=== PATIENT | male | born 1990 | race Caucasian/White ===

== ENCOUNTER 2018-10-25 11:32 | Outpatient (REF) | payer SELFPAY ==
--- NOTE | 2018-10-25 08:20 | ORMUBX_PTH ---
PATIENT: Domenic Garcia LOC: [facility] U#:[id number] AGE/SX: 28/M ROOM: RE10/25/[address]: Ubaldo López : 1990 BED: DIS: 10/25/2018 SPEC #: [id number] RECD: 10/25/18 12:46 STATUS: SIVA REQ #: [id number] CONNOR: 10/25/18 08:[address]: Ubaldo López DEPT: Surgical Specimen RECD BY: Jessica Sagastume ENTERED: 10/25/18 12:47 SP TYPE: ORMUBX OTHR DR: Guero Conner MD Tissues: 1 - MUCOSA, NOS Procedures: GROSS AND MICRO LEVEL 4 Comments: [id number]
== END 2018-10-25 11:52 ==
LOC: LBN 11:32
PROVIDERS: PCP Family Medicine; Visit Provider Dentist General Practice
DX: K13.79 Other lesions of oral mucosa (principal); K13.29 Other disturbances of oral epithelium, including tongue; F17.221 Nicotine dependence, chewing tobacco, in remission
CPT/HCPCS: 88305

== ENCOUNTER 2020-11-12 09:14 | Emergency (ER) | payer OTHER, SELFPAY ==
[2020-11-12] VITALS (43 sets, daily range): BP systolic 113–167; BP diastolic 59–110; PULSE 52–76; RESP 0–27; TEMP 36.7; O2SAT 96–100
--- NOTE | 2020-11-12 09:15 | RT.EKG_ITS ---
APPROVED REPORT Exam: Resting ECG Reason for Exam: chest pain Patient Location: E HR:80 bpm ECG Measurements Heart Rate 80 AXIS MA 137 P 50 QRSd 92 QRS 57 QT 382 T 45 QTc 439 Conclusion Sinus rhythm...normal P axis, V-rate 60- 99 ST elev, probable normal early repol pattern...ST elevation, age<55
--- NOTE | 2020-11-12 10:02 | ED.GENADUL_ITS ---
Discharge Plan Disposition Patient Disposition: HOME Condition: Good Discharge Details Clinical Impression: Chest pain Primary Care Provider: [facility] ED Provider: Jessica King Home Meds and New Rx's Prescriptions: No Action No Known Home Meds RF: 0 Discharge Instructions Additional Instructions: Please follow-up with primary care physician this week, care management should call you to establish primary care physician I have ordered your stress test, they will call you to confirm time You may take aspirin or Tylenol as needed for pain and evening Should you start developing shortness of breath or chest pain during the day and with exertion, you should return immediately for reevaluation Please work on tapering off alcohol, 1 drink a day, so decreased from [id number], do not stop drinking abruptly as this is very dangerous to do yet call the [place] today to be reevaluated and establish care Discharge Data Discharge Date/Time-TO BE ENTERED AT DEPARTURE: 11/12/20 13:55 Medical Decision Making Patient appears well, he is completely asymptomatic and has 2 - troponin levels and a negative D-dimer I did consider cardiac etiology of patient's pain and he is at risk given significant early family history of coronary artery disease at the age of 49 Patient smokes tobacco and drinks alcohol, tobacco and alcohol cessation were discussed Tapering down on alcohol by 1 drink a day was recommended No abdominal bruit or pulsatile mass, I did consider thoracic and abdominal aortic dissection, however as patient is pain-free without any tearing sensation or significant radiation to the back, my suspicion that this is a dissection is low clinically Chest x-ray does not show widened mediastinum or any evidence of intrathoracic abnormality Patient will be set up for outpatient stress test [facility] care management was encouraged to recheck to patient to be sure he establishes care He is given low threshold to return with new or worsening complaints side effects were is a 3 which is why performed to troponin level within 3 hours of each other He did not perform CAT scan of clinically my suspicion is much lower for PE given negative D-dimer, lack of hypoxia, tachypnea, or tachycardia without history of coagulopathy Patient will need recheck and 24 to 48 hours Medical Records Medical records reviewed: Yes I reviewed the patient's medical records. Lab Data Lab results reviewed: Yes I reviewed the patient's lab results. ECG Data Prior ECG tracings: available for review HPI General Mode of arrival: ambulatory . Date/Time Provider Initiated Documentation: 11/12/20 09:38 . Limitations to Documentation: no limitations . Information obtained by: patient . HPI Narrative: This 30-year-old male presents with chest pain for the past 2 weeks that is worsening. He states the pain is in his anterior chest and radiates into his back. He is having pares thesias to his left arm. States that he has a history of hypertension and is not on medication for this. He denies any history of hyperlipidemia. His father from an ID at age 52. He smokes tobacco and drinks alcohol daily. He does have a history of cocaine use but has not used for approximately 3 years. He states the pain is significantly worse during the evening. Denies any calf swelling or tenderness. Denies any aneurysm history. 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 He had an episode this morning at approximately 8 AM. He experiences diaphoresis with the symptoms reportedly. He states the pain radiates from his chest into his left arm. He has the numbness in his hand when this happens. He denies any pain in his actual neck. He denies any pain with movement of his left arm. He denies any recent flights, surgeries, long drives. Related Data Home Medications Medication Instructions Recorded Confirmed Unknown [No Known Home Meds] 11/12/20 11/12/20 Allergies Allergy/AdvReac Type Severity Reaction Status Date / Time No Known Allergies Allergy Unverified 11/12/20 09:36 General Stated Complaint: Chest Pain NASIM: 3 Review of Systems All systems reviewed & are unremarkable except as noted in HPI and below PFSH Social History Smoking/Tobacco Use Status: Current-Occasional Tobacco Type: cigarettes Smoking risk assessment performed?: Yes Drug use: Never Substance use type: does not use Do you feel safe at home: Yes Do you feel safe in your relationship?: Yes Exam Const General: cooperative and no acute distress Eyes Pupils: PERRL Neck Other: No carotid bruit, no palpable tenderness, range of motion intact Chest Chest: normal inspection of the chest Resp Effort & Inspection: normal respiratory effort Cardio Rate: regular rate Other: Distal pulses intact GI Other: No abdominal bruit or pulsatile mass Skin General skin exam: no rashes or lesions noted Neuro General: patient alert and patient oriented x3 Gait: normal gait Other: Strength and sensation intact in bilateral upper extremities Extrem Other: Distal pulses intact, no skin discoloration Strength and sensation intact bilateral upper extremities, no midline neck tenderness, DTRs intact bilateral upper extremity Course Vital Signs Vital signs: Vital Signs Temperature 36.7 C 11/12/20 09:31 Pulse 74 11/12/20 09:31 Respiratory Rate 13 11/12/20 09:31 Blood Pressure 158/110 H 11/12/20 09:31 Pulse Oximetry 100 11/12/20 09:31 Temperature 36.7 C 11/12/20 09:31 Temperature Source Temporal Artery Scan 11/12/20 09:31 Pulse 74 11/12/20 09:31 Respiratory Rate 13 11/12/20 09:38 Respiratory Effort Non-Labored 11/12/20 09:38 Respiratory Depth Normal 11/12/20 09:38 Respiratory Pattern Normal 11/12/20 09:38 Blood Pressure 158/110 H 11/12/20 09:31 Blood Pressure Position Sitting 11/12/20 09:31 Pulse Oximetry 100 11/12/20 09:31 Oxygen Delivery Method Room Air 11/12/20 09:31 Oxygen Flow Rate 0 11/12/20 09:31 Pain Level 3 11/12/20 09:31
[2020-11-12 10:08] LABS: Abs Immature Grans 0.03 10^3/uL (0.0-0.06); Absolute Basophil Count 0.04 10^3/uL (0.0-0.2); Absolute Eosinophil Count 0.14 10^3/uL (0.0-0.7); Absolute Lymphocyte Count 1.75 10^3/uL (1.2-3.4); Absolute Monocyte Count 0.49 10^3/uL (0.1-0.8); Absolute Neutrophil Count 3.72 10^3/uL (1.2-6.7); Basophils % 0.6; Eosinophils % 2.3; HCT 44.9 % (40.0-50.0); HGB 15.5 g/dL (13.5-17.5); Immature Grans % 0.5; Lymphocytes % 28.4; MCH 30.9 pg (27.0-33.0); MCHC 34.5 % (32.0-36.0); MCV 89.4 fL (80-95); Monocytes % 7.9; Neutrophils % 60.3; Nucleated RBC 0 %; Platelet Count 206 10^3/uL (130-400); RBC 5.02 10^6/uL (4.36-5.78); RDW 11.2 % (11.8-14.1); RDW-SD 36.5 fL; WBC 6.17 10^3/uL (4.4-10.8)
[2020-11-12 10:15] LABS: Lipase 123 U/L (73-393)
[2020-11-12 10:22] LABS: ALT 99 U/L (16-63); AST 38 U/L (15-37); Albumin 4.1 g/dL (3.4-5.0); Alkaline Phosphatase 81 U/L (46-116); Anion Gap 8.7 mmol/L (3-11); BUN 17 mg/dL (7-18); Bilirubin, Total 0.5 mg/dL (0.2-1.0); CO2 27.3 mmol/L (21.0-32.0); CREATININE 1.3 mg/dL (0.70-1.30); Chloride 100 mmol/L (98-107); Glucose 235 mg/dL (74-106); Magnesium 1.9 mg/dL (1.8-2.4); Sodium 136 mmol/L (136-145); Total Protein 7.9 g/dL (6.4-8.2)
--- NOTE | 2020-11-12 10:22 | DI.RAD_ITS ---
Exam(s) XR PORTABLE CHEST AP EXAM: XR PORTABLE CHEST AP CLINICAL HISTORY: chest pain. TECHNIQUE: 2D digital imaging was performed. COMPARISON: No exams were available for comparison FINDINGS: Heart size is normal. The mediastinum is not widened. Lungs are clear. No infiltrates nor obvious pleural effusions. None chest leads in place. IMPRESSION: No acute pulmonary findings on this single AP portable view of the chest. DATA REPOSITORY: RADIATION DOSE DELIVERED: All CT scans at this facility use at least one of these dose optimization techniques: automated exposure control; mA and/or kV adjustment per patient size (includes targeted e xams where dose is matched to clinical indication); or iterative reconstruction.
[2020-11-12 10:26] LABS: Troponin I < 0.05 ng/mL (<0.06)
[2020-11-12 10:56] LABS: D-Dimer 469 ng/mlFEU (<500)
--- NOTE | 2020-11-12 12:45 | RT.EKG_ITS ---
APPROVED REPORT Exam: Resting ECG Reason for Exam: chest pain Patient Location: E HR:60 bpm ECG Measurements Heart Rate 60 AXIS [place] 148 P 28 QRSd 90 QRS 56 QT 412 T 36 QTc 410 Conclusion Sinus rhythm...normal P axis, V-rate 60- 99 ST elev, probable normal early repol pattern...ST elevation, age<55
[2020-11-12 13:12] LABS: Troponin I < 0.05 ng/mL (<0.06)
--- NOTE | 2020-11-13 09:57 | NUR.NOTE ---
Nursing Note: Accessed patient record to get the discharge diagnosis for the stress test that was ordered. There was no reason for test circled. Deb Espinoza
== END 2020-11-12 13:55 | disposition home or self-care (01) ==
PROVIDERS: Emergency Provider Physician Assistant
DX: R07.89 Other chest pain (principal); F10.10 Alcohol abuse, uncomplicated; F17.210 Nicotine dependence, cigarettes, uncomplicated; I10 Essential (primary) hypertension
CPT/HCPCS: 80053; 83690; 93005; 99284; 71045; 83735; 84484; 85025; 85379; 93010; 99283

== ENCOUNTER 2020-11-18 03:06 | Outpatient (CLI) | payer OTHER, SELFPAY ==
--- NOTE | 2020-11-18 | ETT_ITS ---
APPROVED REPORT Exam: Exercise Treadmill Patient Location: Out-Patient Room/Bed: Stress Nurse: Candace Paul RN Ordering Provider:MANI COLE, Contact Number: [phone] BMI: 25.10 Baseline Rhythm: Sinus Rhythm Indications: Chest pain Medical History Medical History: Hypertension, smoker (current) Cardiac Medications: None Allergies: NKA Cardiac Risk Factors: Hypertension, smoker (current), family hx Previous Cardiac Procedures: None Pretest Chest Pain Characteristics: None Exercise History: Sedentary Physical Disabilities: None Lung Sounds: Clear to auscultation Heart Sounds: Regular Stress Test Details Test: Exercise stress testing was performed using a Ion protocol. Rest Stress HR Resting HR Supine: 76 bpm Max Heart Rate (APMHR): 189 bpm Resting HR Standin bpm Target HR (85% APMHR): 160 bpm Max HR Achieved: 182 bpm % of APMHR: 96 Recovery HR: 96 bpm HR response to stress: Normal HR response to stress BP Resting BP Supine: 136/86 mmHg Resting BP Standin/94 mmHg Max BP: 180/84 mmHg Recovery BP: 144/70 mmHg BP response to stress: Normal blood pressure response to stress. ECG Resting ECG: Sinus Rhythm Ectopy: None Stress ECG: Sinus Tachycardia ST Change: No significant ST segment changes noted Arrhythmia: None Recovery ECG: Sinus Rhythm Recovery ST Change: No significant ST segment changes noted Recovery Arrhythmia: None Clinical Reason for Termination: Fatigue Stress Symptoms: General Fatigue, dyspnea Exercise duration: 13 min58 sec Highest Stage Reached: Stage 5: 5.0 mph at 18% grade. Exercise capacity: 14.84 METs Zhu Treadmill Score: 12.4 Rate Pressure Product: [id number] Stress ECG Conclusion 1. The resting electrocardiogram was normal. 2. Patient exercised on the Ion protocol and completed a workload of 14.84 METS, limited by fatigue and shortness of breath 3. Normal heart rate and blood pressure response to exercise. The patient achieved 96% of predicted heart rate for age 4. Electrocardiographically there was no evidence of myocardial ischemia 5. There were no significant dysrhythmias Zhu Treadmill Score is 12.4 which is Low risk. Stress Test Summary STAGE Time (mins) Speed (mph) Grade (%) HR BP SYMPTOMS METS Supine 76 136/86 Standing 81 144/94 SpO2 98% 1 3 1.7 10 111 170/84 SpO2 97% 4.6 2 6 2.5 12 124 170/92 SpO2 97% 7 3 9 3.4 14 138 172/94 SpO2 98% 10.2 4 12 4.2 16 164 SpO2 96%, mild SOB 12.9 5 15 5.0 18 179 SpO2 96% 17.2 1 min recovery 158 172/86 SpO2 97% 3 min recovery 118 180/84 SpO2 97% 6 min recovery 96 144/70 SpO2 98%, SOB resolved
== END 2020-11-18 03:26 ==
PROVIDERS: Visit Provider Physician Assistant
DX: R07.9 Chest pain, unspecified (principal); I10 Essential (primary) hypertension; Z82.49 Family history of ischemic heart disease and other diseases of the circulatory system; F17.210 Nicotine dependence, cigarettes, uncomplicated
CPT/HCPCS: 93017

== ENCOUNTER 2021-03-06 14:33 | Emergency (ER) | payer OTHER, SELFPAY ==
[2021-03-06] VITALS (8 sets, daily range): BP systolic 125–143; BP diastolic 76–87; PULSE 61–84; RESP 11–16; TEMP 36.8; O2SAT 99–100
--- NOTE | 2021-03-06 14:30 | RT.EKG_ITS ---
APPROVED REPORT Exam: Resting ECG Reason for Exam: chest pain Patient Location: E HR:80 bpm ECG Measurements Heart Rate 80 AXIS RI 131 P 74 QRSd 102 QRS 78 QT 381 T 43 QTc 439 Conclusion Sinus rhythm...normal P axis, V-rate 60- 99 Probable left atrial enlargement Repolarizatin changes, inferior, similar to previous
--- NOTE | 2021-03-06 14:30 | DI.RAD_ITS ---
Exam(s) XR CHEST 2V PA LATERAL EXAM: XR CHEST 2V PA LATERAL CLINICAL HISTORY: Chest pain TECHNIQUE: 2D digital imaging was performed of the chest. Two images were obtained. PA and lateral views were obtained. COMPARISON: CR XR PORTABLE CHEST AP from 11/12/2020 FINDINGS: MEDIASTINUM: Normal. HEART: Normal. PULMONARY VASCULATURE: Normal. LUNGS: Clear. PLEURAL SPACE: No pleural effusion or pneumothorax. BONE:Within normal limits for the patient's age. OTHER FINDINGS:Normal. IMPRESSION: No acute pulmonary findings. DATA REPOSITORY: RADIATION DOSE DELIVERED:
--- NOTE | 2021-03-06 15:06 | ED.GENADUL_ITS ---
Discharge Plan Disposition Patient Disposition: HOME Condition: Stable Discharge Details Clinical Impression: Chest pain Primary Care Provider: [facility] Provider: Susan Barnhart Home Meds and New Rx's Prescriptions: Continued metformin 500 mg Tablet 500 mg PO BID RF: 0 Discharge Instructions Instructions: Chest Pain (ED) Additional Instructions: Follow up with primary care provider in 3-5 days. Return to ED sooner if any worsening or concerns. Increase oral fluids. Please take Tylenol or Ibuprofen with food every 4-6 hours as needed for pain and swelling. Referrals: [facility] [Primary Care Provider] - Medical Decision Making <Eris Goode NP - Last Filed: 03/06/21 15:58> Patient states CP mostly at night for the last 3 days. Today more persistent and not waxing/waning. Denies trauma, viral s/s, syncope, Covid exposure. Other potential causes of the patient?s presentation were considered; PERC neg. Well?s neg. Pain not consistent with aortic etiology. Physical exam reassuring without signs of pneumothorax, pulmonary infection, heart failure exacerbation, or respiratory failure. PVCs observed during exam otherwise unremarkable exam. Initial troponin negative. Mag WNL, slightly elevated Ron. Glucose is also elevated but I doubt DKA or Hyperosmolar hyperglycemic state. Pt states typical glucose in 250's. With Initial Trop heart score of 2. I discussed with patient the results and possibility of approximately 2% of an adverse cardiac event wit hin the next 4 weeks including NE, permanent disability, or . after discussion patient states that he prefers to not have second trop done. Pending Delta trop, D dimer, chest Xray,pt signed out Medical Records Medical records reviewed: Yes I reviewed the patient's medical records. Medical records narrative: Reviewed previous ED visits and Stress test 11/15 ECG Data Prior ECG tracings: available for review Interpretation: EKG reviewed by . No STEMI and No Worrisome Acute changes <Susan Barnhart - Last Filed: 03/06/21 16:24> Care assumed from provider (Valente Goode NP) Please see their initial HPI, PE, and documentation. Discussed patient details and case and pending workup and disposition. Patient is hemodynamically stable, and alert and oriented. At the time of signout we are awaiting a chest x-ray result. Imaging protocol: XR of the chest. Views: 2 views. COMPARISON: CR XR PORTABLE CHEST AP 11/12/2020 10:16 AM FINDINGS: Lungs: Clear lungs. Pleural spaces: No sizable pleural effusion. No pneumothorax. Heart/Mediastinum: Cardiomediastinal silhouette is within normal limits. Bones/joints: No acute displaced fracture or dislocation. IMPRESSION: No acute cardiopulmonary process. Thank you for allowing us to participate in the care of your patient. Dictated and Authenticated by: Bala George DO Discussed x-ray results with patient who verbalizes understanding. Patient still does not want to wait until the delta troponin which I feel is reasonable due to a negative work-up so far and a recent negative stress test. Discussed follow-up with PCP instructed to return if any worsening. This text was generated using [employer] system, please disregard any oddities of phrase or misspellings. HPI <Eris Goode NP - Last Filed: 03/06/21 15:58> General Mode of arrival: ambulatory . Date/Time Provider Initiated Documentation: 03/06/21 14:34 . Limitations to Documentation: no limitations . Information obtained by: patient . History of Present Illness described as moderate, with intensity rated at 6. Quality is described as aching, and is localized to the chest. Patient reports no radiation. Patient started experiencing this day(s) (3) and it has been intermittent. No relieving factors improve symptom(s), No exacerbating factors reported . Patient notes no other symptoms.. Patient did receive the following treatments prior to arrival, none Related Data Home Medications Medication Instructions Recorded Confirmed metformin 500 mg PO BID 03/06/21 03/06/21 Allergies Allergy/AdvReac Type Severity Reaction Status Date / Time No Known Allergies Allergy Unverified 03/06/21 14:46 General Stated Complaint: Chest Pain NASIM: 2 Review of Systems <Eris Goode NP - Last Filed: 03/06/21 15:58> Constitutional Constitutional: Denies chills, Denies fever(s) and Denies malaise Cardiovascular Cardiovascular: Reports as per HPI, Reports chest pain, Reports chest pain at rest, Denies chest pain with activity, Denies syncope, Denies pedal edema, Denies irregular heart rhythm, Denies lightheadedness, Denies radiating jaw, neck or arm pain, Denies palpitations, Reports dyspnea and Reports dyspnea on exertion Respiratory Respiratory: Denies cough, Denies hemoptysis, Reports dyspnea and Reports dyspnea on exertion Gastrointestinal Gastrointestinal: Denies abdominal pain, Denies nausea and Denies vomiting Neurologic Neurologic: Denies syncope Psychiatric Psychiatric: Reports anxiety Endocrine Endocrine: Denies cold intolerance, Denies heat intolerance and Denies palpitations PFSH <Eris Goode NP - Last Filed: 03/06/21 15:58> All Active Problems (Updated 03/06/21 @ 16:23 by Susan Barnhart) Chest pain (Acute) Medical History (Updated 03/06/21 @ 16:23 by Susan Barnhart) Diabetes Family History (Updated 03/06/21 @ 15:29 by Eris Goode NP) Father Heart disease Social History Smoking/Tobacco Use Status: Current-Occasional Tobacco Type: cigarettes Smoking risk assessment performed?: Yes Alcohol Intake: former Drug use: Never Substance use type: does not use Do you feel safe at home: Yes Do you feel safe in your relationship?: Yes Exam <Eris Goode NP - Last Filed: 03/06/21 15:58> Const General: cooperative, healthy appearing, comfortable, no acute distress, not diaphoretic and not ill appearing Nutritional Appearance: average body habitus Orientation: alert, awake and oriented x3 Limitations: mental status not altered Neck Neck: normal visual inspection, full ROM, trachea midline, supple and no anterior neck swelling Thyroid: thyroid normal Carotids: normal carotid upstroke and no bruits Chest Chest: normal inspection of the chest Resp Effort & Inspection: normal respiratory effort and able to speak in complete sentences Auscultation: clear to auscultation bilaterally Cardio Jugular venous pressure: no JVD Palpation: normal PMI Rate: regular rate Rhythm: regular rhythm Heart Sounds: S1 normal, S2 normal, no click, no gallops, no murmurs and no rubs Bruits: no abdominal aortic bruits and no carotid bruits Pulses: radial pulses present bilaterally 2+ GI Inspection: normal to inspection Palpation: soft, no aortic enlargement, no pulsatile masses and nontender Auscultation: normal bowel sounds Skin General skin exam: no rashes or lesions noted Neuro General: patient alert, patient awake, patient oriented x3, tone normal and moves all extremities Psych Appearance: grossly normal Speech and Movement: speech and movement normal Mood: anxious mood Course <Eris Goode NP - Last Filed: 03/06/21 15:58> Vital Signs Vital signs: Vital Signs Temperature 36.8 C 03/06/21 14:41 Pulse 84 03/06/21 14:41 Respiratory Rate 14 03/06/21 14:41 Blood Pressure 143/87 H 03/06/21 14:41 Pulse Oximetry 100 03/06/21 14:41 Temperature 36.8 C 03/06/21 14:41 Temperature Source Temporal Artery Scan 03/06/21 14:41 Pulse 84 03/06/21 14:41 Respiratory Rate 14 03/06/21 14:41 Respiratory Effort Non-Labored 03/06/21 14:45 Blood Pressure 143/87 H 03/06/21 14:41 Blood Pressure Position Sitting 03/06/21 14:41 Pulse Oximetry 100 03/06/21 14:41 Oxygen Delivery Method Room Air 03/06/21 14:41 Oxygen Flow Rate 0 03/06/21 14:41 Pain Level 6 03/06/21 14:41 Sign Out <Eris Goode NP - Last Filed: 03/06/21 15:58> Sign Out Data: Sign Out Comment: Pt signed out pending chest Xray results Last updated by Eris Goode NP at 03/06/21 16:11
[2021-03-06 15:19] LABS: Abs Immature Grans 0.01 10^3/uL (0.0-0.06); Absolute Basophil Count 0.05 10^3/uL (0.0-0.2); Absolute Eosinophil Count 0.08 10^3/uL (0.0-0.7); Absolute Lymphocyte Count 1.54 10^3/uL (1.2-3.4); Absolute Monocyte Count 0.47 10^3/uL (0.1-0.8); Absolute Neutrophil Count 3.86 10^3/uL (1.2-6.7); Basophils % 0.8; Eosinophils % 1.3; HCT 41.4 % (40.0-50.0); HGB 14.3 g/dL (13.5-17.5); Immature Grans % 0.2; Lymphocytes % 25.6; MCH 30.1 pg (27.0-33.0); MCHC 34.5 % (32.0-36.0); MCV 87.2 fL (80-95); MPV 10.2 fL (8.0-11.0); Monocytes % 7.8; Neutrophils % 64.3; Nucleated RBC 0 %; Platelet Count 242 10^3/uL (130-400); RBC 4.75 10^6/uL (4.36-5.78); RDW 11.1 % (11.8-14.1); RDW-SD 35.4 fL; WBC 6.01 10^3/uL (4.4-10.8)
[2021-03-06 15:30] LABS: ALT 34 U/L (16-63); AST 21 U/L (15-37); Albumin 4.1 g/dL (3.4-5.0); Alkaline Phosphatase 80 U/L (46-116); Anion Gap 8.4 mmol/L (3-11); BUN 15 mg/dL (7-18); Bilirubin, Total 1.2 mg/dL (0.2-1.0); CO2 28.6 mmol/L (21.0-32.0); CREATININE 1.1 mg/dL (0.70-1.30); Calcium 9.2 mg/dL (8.5-10.1); Chloride 99 mmol/L (98-107); Glucose 276 mg/dL (74-106); Magnesium 1.8 mg/dL (1.8-2.4); Potassium 3.5 mmol/L (3.5-5.1); Sodium 136 mmol/L (136-145); Total Protein 7.6 g/dL (6.4-8.2)
[2021-03-06 15:31] LABS: Troponin I < 0.05 ng/mL (<0.06)
[2021-03-06 16:04] LABS: D-Dimer 289 ng/mlFEU (<500)
--- NOTE | 2021-03-06 16:17 | DI.VRAD_ITS ---
PROCEDURE INFORMATION: Exam: XR Chest Exam date and time: 03/06/2021 3:56 PM Age: 30 years old Clinical indication: Other: Chest pain TECHNIQUE: Imaging protocol: XR of the chest. Views: 2 views. COMPARISON: CR XR PORTABLE CHEST AP 11/12/2020 10:16 AM FINDINGS: Lungs: Clear lungs. Pleural spaces: No sizable pleural effusion. No pneumothorax. Heart/Mediastinum: Cardiomediastinal silhouette is within normal limits. Bones/joints: No acute displaced fracture or dislocation. IMPRESSION: No acute cardiopulmonary process. Dictated and Authenticated by: Bala George MD. Ordering:DOMONIQUE Schulte MD
== END 2021-03-06 17:27 | disposition home or self-care (01) ==
PROVIDERS: Nurse Practitioner Family; Emergency Provider Registered Nurse Emergency
DX: R07.9 Chest pain, unspecified (principal); E11.9 Type 2 diabetes mellitus without complications
CPT/HCPCS: 36415; 80053; 93005; 99284; 71046; 83735; 84484; 85025; 85379; 93010

== ENCOUNTER 2021-03-26 02:31 | Outpatient (CLI) | payer OTHER, SELFPAY ==
[2021-03-26] MEDS: Omnipaque 350 MG/ML 50 ML BTL PO (09:32)
[2021-03-26] MEDS: Breeza Beverage 473 ML BTL PO ×2 (09:32→09:33)
--- NOTE | 2021-03-26 11:23 | DI.CT_ITS ---
Exam(s) CT ABDOMEN PELVIS W EXAM: CT ABDOMEN PELVIS W CLINICAL HISTORY: [id number],SUDDEN HYPERGLYCEMIA,? ABNL OR MALIGNANCY. TECHNIQUE: Imaging Protocol: Axial computed tomography images with coronal and sagittal reformatted images were created and reviewed CONTRAST MATERIAL: Intravenous: Omnipaque 100cc Oral: Yes. Oral contrast was also administered for bowel opacification. COMPARISON: CR LUMBAR SPINE COMPLETE from 01/30/2012 FINDINGS: VISUALIZED LUNG BASES: No nodules nor pleural effusions evident. ABDOMEN: There is no ascites. LIVER: There are no focal hepatic lesions evident . GALLBLADDER/BILIARY: No obvious gallbladder pathology. CBD is not dilated. PANCREAS: No evidence of pancreatic mass nor dilatation of the pancreatic duct. SPLEEN: Spleen is not enlarged. No obvious intrasplenic lesions. Splenic and portal veins are paten t. ADRENALS: There are no significant adrenal masses. KIDNEYS:No cysts evident. No solid renal masses. No calculi nor hydronephrosis.. ABDOMINAL AORTA: Abdominal aorta is not enlarged. LYMPH NODES:There is no retroperitoneal nor paraaortic adenopathy. ABDOMINAL WALL: No evidence of significant anterior abdominal wall nor inguinal hernia. GI: There is no evidence of bowel obstruction, free air, nor abscess. However, there appears to be some mucosal fold prominence in the left-sided jejunal loops, not associ ated with nodularity. Diameter small bowel loops to this level averages 2.6 cm, upper normal range. PELVIS: GI: No evidence of appendicitis.No evidence of sigmoid diverticulitis. LYMPH NODES: There is no intrapelvic nor inguinal adenopathy. REPRODUCTIVE: Age-appropriate URINARY BLADDER: Mild uniform bladder wall thickening. No masses nor calculi within the bladder lume n. OSSEOUS: In the right iliac bone there is a peripherally sclerotic non expansile supra-acetabular bon e lesion measuring 1.8 by 1.4 cm. No other bone lesions evident. At L5-S1 level some disc space narrowing and anterolisthesis L5-S1 noted. This appears to be related to a unilateral defect in the right side at the posterior articular process of L5. Possibly related to prior fracture at this level more so than typical appearance of pars interarticularis defect. IMPRESSION: 1. There appears to be some mucosal fold prominence in left-sided jejunal small bowel loops, not asso ciated with nodularity nor bowel obstruction. Diameters of these small bowel loops is upper normal. 2. No obvious focal abnormality in the pancreas, given the diabetic history here. 3. There is an 18 x 14 millimeter peripherally sclerotic non expansile bone lesion in the right iliac bone. This is most probably a benign bone lesion and was also evident on plain radiographs of the l umbar spine performed January 2012. 4. RADIATION DOSE DELIVERED: 667.77mGy.cm Total DLP DATA REPOSITORY: All CT scans at this facility are submitted to the National Radiology Data Registry (NRDR) Dose Index Registry (DIR) with the [employer] (ACR). RADIATION OPTIMIZATION: All CT scans at this facility use at least one of these dose optimization te chniques: automated exposure control; mA and/or kV adjustment per patient size (includes targeted exa ms where dose is matched to clinical indication); or iterative reconstruction.
[2021-03-26] MEDS: Omnipaque 350 MG/ML 100 ML BTL IJ (11:33)
== END 2021-03-26 02:51 ==
PROVIDERS: Visit Provider Occupational Therapist
DX: E11.65 Type 2 diabetes mellitus with hyperglycemia (principal); M89.9 Disorder of bone, unspecified
CPT/HCPCS: 74177; J3490; Q9967

== ENCOUNTER 2021-11-30 13:33 | Emergency (ER) | payer OTHER, SELFPAY ==
[2021-11-30] VITALS (32 sets, daily range): BP systolic 110–156; BP diastolic 71–98; PULSE 67–86; RESP 9–20; TEMP 37.2; O2SAT 96–100
--- NOTE | 2021-11-30 13:30 | RT.EKG_ITS ---
APPROVED REPORT Exam: Resting ECG Reason for Exam: chest pain Patient Location: E HR:81 bpm ECG Measurements Heart Rate 81 AXIS [place] 123 P 24 QRSd 103 QRS 83 QT 370 T 64 QTc [address] elev, probable normal early repol pattern. Similar to 11/12/20
--- NOTE | 2021-11-30 13:45 | DI.RAD_ITS ---
Exam(s) XR CHEST 2V PA LATERAL EXAM: XR CHEST 2V PA LATERAL CLINICAL HISTORY: chest pain TECHNIQUE: 2D digital imaging was performed. COMPARISON: CR,XR XR CHEST 2V PA LATERAL from 03/06/2021 FINDINGS: MEDIASTINUM: Normal. HEART: Normal. PULMONARY VASCULATURE: Normal. LUNGS: Clear. PLEURAL SPACE: No pleural effusion or pneumothorax. BONE:Unremarkable for age. IMPRESSION: No acute abnormality. DATA REPOSITORY: RADIATION DOSE DELIVERED:
--- NOTE | 2021-11-30 14:04 | ED.GENADUL_ITS ---
Discharge Plan Disposition Patient Disposition: HOME Condition: Improving Discharge Details Clinical Impression: Atypical chest pain [facility] Provider: Merrick Munoz Home Meds and New Rx's Prescriptions: New alprazolam [Xanax] 0.5 mg tablet 0.5 mg PO DAILY PRN (Reason: anxiety) Qty: 5 0RF Rx Instructions: If needed for anxiety Continued metformin 500 mg Tablet 500 mg PO BID Discharge Instructions Instructions: Chest Pain (ED) Additional Instructions: [facility]. Your work-up today including cardiac troponin was reassuring. May use the prescribed if needed for severe anxiety. No alcohol or driving with this medication. Return to the emergency department for any acute concerns. Discharge Data Discharge Date/Time-TO BE ENTERED AT DEPARTURE: 11/30/21 16:35 Medical Decision Making 31-year-old male presents with recurrent left anterior chest discomfort. He says he became very anxious regarding this and developed tingling of his hands this morning. He will admit to some recent cocaine use. He has some anxiety but is not depressed or suicidal. He has had previous episodes of chest pain including work-up with exercise stress test in October 2020 in which she achieved 14 METS and had a normal EKG. Today, patient placed on a copier operator, IV access established, screening labs, EKG and chest x-ray obtained. Labs are reassuring. Troponin is negative. Blood pressure declined from 150 over 90s to 111/78 and patient improved. I do feel there is a significant component of anxiety for Mr. Garcia. We reviewed that he had an unremarkable stress test a year ago. He has follow-up at the [facility] on Tuesday. I offered him a trial of a small number of Xanax for as needed use. He is stable and improving, will discharged home. Lab Data Lab results reviewed: Yes I reviewed the patient's lab results. Labs: Laboratory Results - last 24 hr 11/30/21 11/30/21 11/30/21 13:41 13:41 16:52 WBC 7.06 RBC 5.42 Hgb 17.0 Hct 49.2 MCV 91 MCH 31.4 MCHC 34.6 RDW 11.8 Plt Count 354 MPV 8.6 Immature Gran % 0.1 Neutrophils % 52.7 Lymphocytes % 34.6 Monocytes % 9.6 Eosinophils % 2.4 Basophils % 0.6 Nucleated RBC % 0.0 Absolute Neutrophils 3.72 Absolute Lymphocytes 2.44 Absolute Monocytes 0.68 Absolute Eosinophils 0.17 Absolute Basophils 0.04 Sodium 138 Potassium 4.1 Chloride 99 Carbon Dioxide 32.6 H Anion Gap 6.4 BUN 15 Creatinine 1.2 Est GFR (CKD-EPI 2020) 82.40 Glucose 109 H Calcium 9.4 Magnesium 2.0 Total Bilirubin 0.9 AST 44 H ALT 53 Alkaline Phosphatase 76 Troponin I < 50 Cancelled Total Protein 8.8 H Albumin 4.5 HPI General Mode of arrival: ambulatory . Date/Time Provider Initiated Documentation: 11/30/21 13:33 . Limitations to Documentation: no limitations . Information obtained by: patient . History of Present Illness 31 year old M presents to the emergency department with the chief complaint of Left anterior chest pain, recurrent, described as mild and similar to prior episodes, Quality is described as dull, and is localized to the chest and left. Patient reports no radiation. Patient started experiencing this day(s) and it has been intermittent. No relieving factors improve symptom(s), No exacerbating factors reported . Patient notes chest pain; denies cough, shortness of breath, syncope and weakness. Patient did receive the following treatments prior to arrival, none Related Data Home Medications Medication Instructions Recorded Confirmed metformin 500 mg tablet 500 mg PO BID 03/06/21 03/06/21 alprazolam 0.5 mg tablet (Xanax) 0.5 mg PO DAILY PRN anxiety #5 tabs 11/30/21 Previous Rx's Medication Instructions Recorded alprazolam 0.5 mg tablet (Xanax) 0.5 mg PO DAILY PRN anxiety #5 tabs 11/30/21 Allergies Allergy/AdvReac Type Severity Reaction Status Date / Time No Known Allergies Allergy Unverified 11/30/21 13:41 General Stated Complaint: Chest Pain NASIM: 2 Review of Systems Narrative: 6 systems reviewed and otherwise negative PFSH All Active Problems (Updated 11/30/21 @ 16:18 by Merrick Munoz MD) Atypical chest pain (Acute) Chest pain (Acute) Medical History Diabetes Family History Father Heart disease Social History Smoking/Tobacco Use Status: Current-Occasional Tobacco Type: cigarettes Smoking risk assessment performed?: Yes Alcohol Intake: former Drug use: Never Substance use type: does not use Do you feel safe at home: Yes Do you feel safe in your relationship?: Yes Exam Narrative Exam Narrative: GEN: awake, alert, oriented 3. Pleasant, well groomed, interactive. HEAD: Normocephalic, atraumatic ENT: Mucous membranes moist, oropharynx unremarkable, External ear exam unremarkable EYES: PERRL, EOMI NECK: Full ROM, no MARKY, no menigismus CHEST/RESP: Nontender, clear to auscultation bilateral, no wheeze/rhonchi/rales CARDIOVASCULAR: RRR, no murmur, rub brittny. 2+ Rad pulse bilateral ABDOMEN: Soft, nontender, no mass. +Bowel sounds EXT: Full ROM, no edema, no rash Neuro: Grossly normal neurologic exam, conversant, interactive. Psych: Speech fluent, thoughts congruent, affect anxious Course Vital Signs Vital signs: Vital Signs Temperature 37.2 C 11/30/21 13:38 Pulse 83 11/30/21 13:38 Respiratory Rate 18 11/30/21 13:38 Pulse Oximetry 99 11/30/21 13:38 Temperature 37.2 C 11/30/21 13:38 Temperature Source Temporal Artery Scan 11/30/21 13:38 Pulse 83 11/30/21 13:38 Respiratory Rate 18 11/30/21 13:38 Blood Pressure Position Sitting 11/30/21 13:38 Pulse Oximetry 99 11/30/21 13:38 Oxygen Delivery Method Room Air 11/30/21 13:38 Oxygen Flow Rate 0 11/30/21 13:38
[2021-11-30 14:20] LABS: Abs Immature Grans 0.01 10^3/uL (0.0-0.06); Absolute Basophil Count 0.04 10^3/uL (0.0-0.2); Absolute Eosinophil Count 0.17 10^3/uL (0.0-0.7); Absolute Lymphocyte Count 2.44 10^3/uL (1.2-3.4); Absolute Monocyte Count 0.68 10^3/uL (0.1-0.8); Absolute Neutrophil Count 3.72 10^3/uL (1.2-6.7); Basophils % 0.6; Eosinophils % 2.4; HCT 49.2 % (40.0-50.0); Immature Grans % 0.1; Lymphocytes % 34.6; MCH 31.4 pg (27.0-33.0); MCHC 34.6 % (32.0-36.0); MCV 91 fL (80-95); MPV 8.6 fL (8.0-11.0); Monocytes % 9.6; Neutrophils % 52.7; Platelet Count 354 10^3/uL (130-400); RBC 5.42 10^6/uL (4.36-5.78); RDW 11.8 % (11.8-14.1); RDW-SD 39.1 fL; WBC 7.06 10^3/uL (4.4-10.8)
[2021-11-30 14:36] LABS: ALT 53 U/L (16-63); AST 44 U/L (15-37); Albumin 4.5 g/dL (3.4-5.0); Alkaline Phosphatase 76 U/L (46-116); Anion Gap 6.4 mmol/L (3-11); BUN 15 mg/dL (7-18); Bilirubin, Total 0.9 mg/dL (0.2-1.0); CO2 32.6 mmol/L (21.0-32.0); CREATININE 1.2 mg/dL (0.70-1.30); Calcium 9.4 mg/dL (8.5-10.1); Chloride 99 mmol/L (98-107); Glucose 109 mg/dL (74-106); Potassium 4.1 mmol/L (3.5-5.1); Sodium 138 mmol/L (136-145); Total Protein 8.8 g/dL (6.4-8.2); Troponin I < 50 ng/L (<or=60)
--- NOTE | 2021-11-30 15:14 | DI.VRAD_ITS ---
PROCEDURE INFORMATION: Exam: XR Chest Exam date and time: 11/30/2021 2:45 PM Age: 31 years old Clinical indication: Other: Gernerlized chest pain TECHNIQUE: Imaging protocol: Radiologic exam of the chest. Views: 2 views. COMPARISON: CR XR CHEST 2V PA LATERAL 03/06/2021 3:48 PM FINDINGS: Lungs: Unremarkable. No consolidation. Pleural spaces: Unremarkable. No pleural effusion. No pneumothorax. Heart/Mediastinum: Unremarkable. No cardiomegaly. Bones/joints: Unremarkable. IMPRESSION: No acute findings. Dictated and Authenticated by: Flip Crowley MD. Ordering:EMMA Sin MD
== END 2021-11-30 16:35 | disposition home or self-care (01) ==
PROVIDERS: Emergency Provider Emergency Medicine
DX: R07.89 Other chest pain (principal); F41.9 Anxiety disorder, unspecified; E11.9 Type 2 diabetes mellitus without complications; F17.210 Nicotine dependence, cigarettes, uncomplicated
CPT/HCPCS: 36415; 80053; 93005; 99283; 71046; 83735; 84484; 85025; 93010; 99284

== ENCOUNTER 2022-01-05 00:16 | Observation (INO) | payer OTHER, SELFPAY ==
[2022-01-05] VITALS (37 sets, daily range): BP systolic 109–134; BP diastolic 51–93; PULSE 70–99; RESP 6–25; TEMP 36.6–37.1; O2SAT 96–100
--- NOTE | 2022-01-05 00:23 | ED.GENADUL_ITS ---
Discharge Plan Disposition Patient Disposition: STILL A PATIENT Condition: Stable Discharge Details Clinical Impression: Depression, Suicidal thoughts, Alcohol intoxication [facility] Care Provider[facility] Provider: River Rosenbaum Home Meds and New Rx's Prescriptions: No Action alprazolam [Xanax] 0.5 mg tablet 0.5 mg PO DAILY PRN (Reason: anxiety) Qty: 5 0RF Rx Instructions: If needed for anxiety alprazolam 0.5 mg tablet 0.5 mg PO Label Comments: TAKE 1 TABLET BY MOUTH DAILY FOR ANXIETY NEEDED Jardiance 10 mg Tablet Medical Decision Making 0045 -- 31-year-old male with a history of diabetes, anxiety, depression and daily alcohol use presents for depression and thoughts of suicide. Patient is intoxicated. His heart rate and blood pressure are in minimally elevated. He is oriented x3. Will obtain screening labs and COVID. Labs reviewed. Glucose 192. Bicarb 20, anion gap 21.9. Urinalysis trace ketones. We will give fluid bolus and radiates Wilbert metabolic panel. Alcohol 307. Will not be able to be evaluated by mental health until alcohol level 0 which will be at approximately 1pm later today. 0300 -- After 2 L of IVF, glucose now 151 and bicarb within normal limits and anion gap improved to 14. Will recheck anion gap later this morning. 0800 -- Case endorsed to the oncoming provider to continue to monitor while awaiting to speak to mental health when alcohol is 0 around 1300. Medical Records Medical records reviewed: Yes I reviewed the patient's medical records. Lab Data Lab results reviewed: Yes I reviewed the patient's lab results. HPI General Mode of arrival: ambulatory . Date/Time Provider Initiated Documentation: 01/05/22 00:22 . Limitations to Documentation: no limitations . Information obtained by: patient . HPI Narrative: Pt is a 31yo M w/ a h/o diabetes, anxiety, depression and daily alcohol use who presents for feeling depressed and thoughts of suicide. Pt brought in by his brother who was concerned about his safety. Brother states [facility] due to concern for his brothers thoughts of suicide and they advised he come there for evaluation. Father states that he did not want to drive that far so they told the [facility] they were coming here and could be transferred to the [facility] at some point. Patient states he has been feeling depressed for quite some time but states it recently came to a head . Patient admits to access to firearms and states he would shoot himself in the mouth to kill himself. Patient states he drinks about 7 beers daily and states he had this amount today. Patient also admitted to cocaine use. Patient states he has been taking bupropion for his depression but felt it was not working so stopped it. He states he has tried to contact [facility] for his concerns with his depression but states he is usually never able to reach anyone. He does admit to thoughts of harming someone else but states they are not in this area . He denies any hallucinations. Related Data Home Medications Medication Instructions Recorded Confirmed alprazolam 0.5 mg tablet (Xanax) 0.5 mg PO DAILY PRN anxiety #5 tabs 11/30/21 01/05/22 alprazolam 0.5 mg tablet 0.5 mg PO 01/05/22 empagliflozin 10 mg tablet mg 01/05/22 (Jardiance) Previous Rx's Medication Instructions Recorded alprazolam 0.5 mg tablet (Xanax) 0.5 mg PO DAILY PRN anxiety #5 tabs 11/30/21 Allergies Allergy/AdvReac Type Severity Reaction Status Date / Time No Known Allergies Allergy Unverified 01/05/22 00:31 General Stated Complaint: PsychEval NASIM: 2 Review of Systems All systems reviewed & are unremarkable except as noted in HPI and below Constitutional Constitutional: Reports as per HPI, Denies chills and Denies fever(s) Eyes Eyes: Denies blurry vision ENT Ears, Nose, Mouth, and Throat: Denies dizziness, Denies sore throat and Denies throat swelling Cardiovascular Cardiovascular: Denies chest pain and Denies dyspnea Respiratory Respiratory: Denies cough and Denies dyspnea Gastrointestinal Gastrointestinal: Denies abdominal pain, Denies diarrhea and Denies vomiting Genitourinary Genitourinary: Denies hematuria and Denies dysuria Musculoskeletal Musculoskeletal: Denies back pain and Denies numbness Integumentary/Breasts Skin/Breast: Denies lesions and Denies rash Neurologic Neurologic: Denies dizziness, Denies localized weakness and Denies numbness Psychiatric Psychiatric: Reports homicidal ideation and Reports suicidal ideation Allergic/Immunologic Allergic/Immunologic: Denies throat swelling PFSH All Active Problems (Updated 01/05/22 @ 06:46 by Priya Ludwig DO) Depression (Chronic) Suicidal thoughts (Acute) Alcohol intoxication (Acute) Chest pain (Acute) Medical History (Updated 01/05/22 @ 06:46 by Priya Ludwig DO) Anxiety Depression Diabetes Surgical History (Updated 01/05/22 @ 01:01 by Priya Ludwig DO) History of hernia repair Family History Father Heart disease Social History Smoking/Tobacco Use Status: Current-Occasional Tobacco Type: smokeless tobacco Smoking risk assessment performed?: Yes Alcohol Intake: former Drug use: Occasionally Substance use type: marijuana and crack/cocaine Details: self medicating Do you feel safe at home: Yes Do you feel safe in your relationship?: Yes Exam Const General: cooperative, no acute distress and intoxicated appearing Orientation: alert, awake and oriented x3 HENMT Head: normal to inspection Face and sinus: normal facial exam Eyes General: appearance normal, both eyes and all related structures Pupils: PERRL EOM: EOM intact bilaterally Neck Neck: normal visual inspection and No submandibular swelling Lymphatic: no lymphadenopathy noted Chest Chest: normal inspection of the chest and no tenderness Resp Effort & Inspection: normal respiratory effort and able to speak in complete sentences Auscultation: clear to auscultation bilaterally Cardio Rate: regular rate Rhythm: regular rhythm GI Inspection: normal to inspection Palpation: soft, not firm, not rigid and nontender Auscultation: normal bowel sounds Male General Exam: Yes normal external exam Back/Spine/Pelvis Thoracic/Lumbar Spine: thoracic and lumbar spine normal to inspection Pelvis: no pain with anterior-posterior compression Skin General skin exam: no rashes or lesions noted Neuro General: patient alert, patient awake, patient oriented x3 and moves all extremities Cognition: normal cognition Speech: speech normal Motor: muscle tone normal throughout Sensory Exam: no sensory deficits noted Extrem General: normal to inspection, full ROM, capillary refill normal, no calf tenderness bilaterally and no edema Psych Appearance: grossly normal Mental Status: mental status grossly normal Speech and Movement: speech and movement normal Affect: normal affect Sign Out Sign Out Data: Sign Out Comment: Intoxicated. SI. Will be medically cleared to speak with mental health at 1300 when alcohol level 0. Last updated by Priya Ludwig DO at 01/05/22 02:20
[2022-01-05 00:56] LABS: Abs Immature Grans 0.03 10^3/uL (0.0-0.06); Absolute Basophil Count 0.07 10^3/uL (0.0-0.2); Absolute Eosinophil Count 0.08 10^3/uL (0.0-0.7); Absolute Lymphocyte Count 2.39 10^3/uL (1.2-3.4); Absolute Monocyte Count 0.41 10^3/uL (0.1-0.8); Absolute Neutrophil Count 4.84 10^3/uL (1.2-6.7); Basophils % 0.9; HCT 47.1 % (40.0-50.0); HGB 16.8 g/dL (13.5-17.5); Immature Grans % 0.4; Lymphocytes % 30.6; MCH 31.8 pg (27.0-33.0); MCHC 35.7 % (32.0-36.0); MCV 89 fL (80-95); MPV 8.7 fL (8.0-11.0); Monocytes % 5.2; Neutrophils % 61.9; Platelet Count 300 10^3/uL (130-400); RBC 5.29 10^6/uL (4.36-5.78); RDW 11.6 % (11.8-14.1); RDW-SD 37.4 fL; WBC 7.82 10^3/uL (4.4-10.8)
[2022-01-05 01:04] LABS: Source Nasal/Nares
[2022-01-05] MEDS: Normal Saline 1,000 ML 1000 ML IV ×2 (01:09→01:49)
[2022-01-05 01:18] LABS: ALT 89 U/L (16-63); AST 73 U/L (15-37); Albumin 4.6 g/dL (3.4-5.0); Alkaline Phosphatase 86 U/L (46-116); Anion Gap 21.9 mmol/L (3-11); BUN 17 mg/dL (7-18); Bilirubin, Total 0.4 mg/dL (0.2-1.0); CO2 20.1 mmol/L (21.0-32.0); CREATININE 1.1 mg/dL (0.70-1.30); Calcium 8.9 mg/dL (8.5-10.1); Chloride 97 mmol/L (98-107); ETHANOL BLOOD 307.6 mg/dL (<10); Estimated GFR 91.47 (mL/min/1.73m2); Glucose 192 mg/dL (74-106); Sodium 139 mmol/L (136-145)
[2022-01-05 01:26] LABS: *AMPHETAMINES SCREEN URINE Negative (Negative); *BARBITURATES SCREEN URINE Negative (Negative); *BENZODIAZEPINES SCREEN URINE Negative (Negative); Cannabinoids THC Negative (Negative); Cocaine Screen,Urine Positive (Negative); METHADONE URINE SCREEN Negative (Negative); OPIATES URINE SCREEN Negative (Negative); Tricyclic Antidepressants Negative (Negative)
[2022-01-05 01:30] LABS: Bilirubin Negative (Negative); Blood Trace-lysed (Negative); Clarity Clear (Clear); Glucose 500 mg/dL (Negative); Ketones Trace mg/dL (Negative); Leukocyte Esterase Negative (Negative); Nitrite Negative (Negative); Urobilinogen 0.2 EU/dL (Up TO 0.2); pH 5.5 (5-8)
[2022-01-05 01:31] LABS: Bacteria Rare HPF (Negative); C & S Indicated? No; Crystals Negative HPF (Negative); Epithelial Cells Rare HPF (Negative); Mucus Negative (Negative); RBC 0-2 HPF (0-2); WBC 0-2 HPF (0-5)
[2022-01-05 01:34] LABS: COVID-19 PCR Negative (Negative)
[2022-01-05 02:42] LABS: TSH (W/Ref FT4) 2.37 uIU/mL (0.36-3.74)
[2022-01-05 03:22] LABS: Anion Gap 14.9 mmol/L (3-11); BUN 16 mg/dL (7-18); CO2 23.1 mmol/L (21.0-32.0); CREATININE 0.9 mg/dL (0.70-1.30); Calcium 7.5 mg/dL (8.5-10.1); Chloride 104 mmol/L (98-107); Estimated GFR 116.37 (mL/min/1.73m2); Glucose 151 mg/dL (74-106); Sodium 142 mmol/L (136-145)
[2022-01-05 04:22] LABS: Magnesium 2.1 mg/dL (1.8-2.4)
[2022-01-05] MEDS: Normal Saline 1,000 ML 150 ML IV (04:31)
[2022-01-05 07:54] LABS: Anion Gap 12.7 mmol/L (3-11); BUN 14 mg/dL (7-18); CO2 26.3 mmol/L (21.0-32.0); Chloride 104 mmol/L (98-107); Estimated GFR 102.55 (mL/min/1.73m2); Glucose 98 mg/dL (74-106); Potassium 4.1 mmol/L (3.5-5.1); Sodium 143 mmol/L (136-145)
--- NOTE | 2022-01-05 10:43 | NUR.NOTE ---
Patient woke up to use bathroom. Patient ambulated with no problem. Voided and returned back to room 7. Patient stated that he, didn't need anything right now, but I am going home. RN notified. Nursing Note:
--- NOTE | 2022-01-05 11:47 | PDOC.MHCN_ITS ---
Date of service: 01/05/22 Time of Service: 11:09 PHQ-9 Over the last 2 weeks, how often have you been bothered by any of the following problems? 1. Little interest or pleasure in doing things: nearly every day 2. Feeling down, depressed, or hopeless: several days 3. Trouble falling or staying asleep, or sleeping too much: nearly every day 4. Feeling tired or having little energy: nearly every day 5. Poor appetite or overeating: several days 6. Feeling bad about yourself - or that you are a failure or have let yourself and your family down: more than half the days 7. Trouble concentrating on things, such as reading the newspaper or watching television: several days 8. Moving or speaking so slowly that other people could have noticed? - Or the opposite - being so fidgety or restless that you have been moving around a lot more than usual: several days 9. Thoughts that you would be better off or of hurting yourself in some way: more than half the days Total score: 17 If you checked off any problems, how difficult have these problems made it for you to do your work, take care of things at home, or get along with other people?: very difficult Source: Developed by Drs. Carroll Ellis, Wanda Baker, Bridger Bradshaw and colleagues, with an educational yung from [employer]. Suicide Severity Rate CSSRS Have you wished you were or wished you could go to sleep and not wake up?: Yes Have you actually had any thoughts of killing yourself?: Yes CSSRS2 Have you been thinking about how you might do this?: No Have you had these thoughts and had some intention of acting on them?: No Have you started to work out or worked out the details of how to kill yourself? Do you intend to carry out this plan?: No CSSRS3 Have you ever done anything, started to do anything or prepared to do anything to end your life?: No CSSRS4 Was this within the past three months?: No Screening Score Total Score: 4 Screening: Positive Mental Health Emergency Note Release [facility] release signed:: No Reason for Visit Depression/SI/Alcohol Intoxication In the last 2 weeks has the pt presented for ES prior to today?: Unknown Non Suicidal Self Injury Current: No History: No Safety Risk/Harm to Self or Others Current Ideation to Harm Self or Others: No Risk: Does risk to harm exist?: yes. Access to means: Yes. Types of Means: Firearms and Other weapons (Client does not currently have access to sharps while being in ED. However, client disclosed he has 8 knives.). Details: Client does not currently have access to firearms while being in ED. However, client disclosed he has 6 guns. . Counseling provided: Yes Risk: High Risk Duty to warn indicated: No Asssessment/Mental Status Appearance: Disheveled Attitude: Guarded (Client did not appear truthful/forth coming to this lead technical writer's questions) Behavior: Agitated Speech: Slow and Hesitant Affect: Flat and Cogruent with mood Mood: Stressed, Depressed, Anxious and Irritable Thought process: Unremarkable Hallucinations: No evidence Delusions: No evidence Attention: Unremarkable Perception: Not impaired Orientation: Fully orientated Memory: Intact Insight: Poor Judgement: Poor Neurovegetative Symptoms Sleep: Decrease (Client reports waking up every 2 hours at night when laying in bed for 12 hrs at a time) Appetitie: Decrease (Client reports eating one meal a day and one snack a day) Interests: Decrease Energy: Decrease Libido: No change Substance Use: Intoxication (Client disclosed drinking 8 beers daily. Client reports drinking 10 beers last night.) Drug Issues: Other (Client reports to using Cocaine a couple times a month ) Do you use nicotine?: No Have you used substances in the last 7 days?: yes, refer to information above Impression Client presented to ED for Depression/SI/and Alcohol intoxication. callisthenics instructor ES worker Ruchi Manzococo was contacted by local law enforcement after client's brother called concerned for his brother's safety. Law enforcement informed DUNCAN Crooks, client was under the influence of alcohol and had a loaded fire arm in his possession. DUNCAN Crooks successfully made contact with client via phone, however client would not disclose his location, at the time the call was placed. Client's brother Carroll was able to locate client and brought him to ED to be evaluated. Client FLORINDA was above normal range at the time he was brought in to ED, client's exact levels are unknown to this lead technical writer. Prior to this client being screened by , client needed to be medically cleared. Dr. Mayito Rosenbaum called 01/05 around 11 am stating client was clinically cleared and was attempting to leave. This lead technical writer screened client via zoom, while client was in [facility] ED. It should be noted, client did not appear truthful and forth coming with his responses to this lead technical writer's questions. Client presented guarded and did not provide enough clarifying information for this lead technical writer to gain an overall sense of the current struggles the client is facing. Client reports his current mood is embarrassed. Client denies actively endorsing SI/HI/NSSI. It should be n oted at points in the conversation with this lead technical writer, client contradicted himself. For example, client denies past history of SI. However, further on in the assessment, client reports the last time he experienced SI was 3 weeks ago, where he thought about acting on his thoughts. Client would not disclose past intent/plan. This client also reports past hospitalization for SI 9 yrs prior; which resulted in past IP hospitalization for MH tx. Client shows poor judgment/insight. On a self rated scale of 0-10, 0 being not at all to 10 being 100%, client rated himself a 0, on how likely he would be to act on his suicidal thoughts if he were to leave the ED today. Using the same self rating scale, this lead technical writer asked client to rate himself where on the scale he was last night, client reports he was at a 6. This lead technical writer asked this client to elaborate on what changed from last night to currently, client could not identify any changes or improvements and reported I don't know that is just how I feel. Client reports to active substance/drug use; client reports drinking 8 beers daily and cocaine use multiple times a month. Client reports access to multiple types of means; client reports he owns a total of 6 firearms, and a totals of 8 knifes. This lead technical writer provided client education/counseling regarding removing access to means. Client was not willing to partake in removal of means and responded he did not feel removing his property was necessary. Client could not identify any current professional supports he is followed by. Client reports the last time he attended therapy was 3 months prior, and discontinued due to being busy. Client was reluctant to seeking placement for IP tx and reported he would like to go home first, shower, clean up and [facility]. This lead technical writer exp lained these were all things he can do from the ED. This lead technical writer then went on to explain the process of placement for MH tx. in [place]. Client is willing to seek voluntary placement. Client was informed if he were attempt to leave AMA, a MH warrant would be written on his behalf due to this lead technical writer's concern for his safety. Client stated he understood and would await in ED. This lead technical writer informed client to reach out with any further questions or concerns. Plan/Disposition Recommended Disposition: Hospitalization (IP tx.) facilities contacted. Plan: Client is to await in ED until voluntary placement can be secured. Client has been informed if he attempts to leave, an EE would be written and the status of treatment would change from voluntary to involuntary. Client was hesitant in seeking placement and reported to this lead technical writer he wanted to go home and shower, then contact the [place] and hospitals for placement. This lead technical writer informed client of the process of waiting in ED for placement in the state of [place]. Client reports he understands and is currently agreeable to developed plan. Person reported agreement to plan: Yes Facilities contacted if Applicable [facility] (Referral will be sent) Accepted, Pending review. Information Sent to [place]: Referral [facility] (Referral will be sent ) Accepted, Pending review. Information Sent to [facility]: Referral (Referral will be sent) Accepted, Pending review. [facility] [place], Pending review. Information Sent to [place]: Referral Other: Other ([facility] accepted (Referral will be sent) Pending review Information Sent to Accepting Facility: Referral Reports/communication Outcome discussed with: ED/Personnel (Attending Nurse Liv Jones)
--- NOTE | 2022-01-05 11:51 | NUR.NOTE ---
Brother in room. Nursing Note:
--- NOTE | 2022-01-05 12:02 | PDOC.CMSAFED ---
- If Service Date Differs Date of service: 01/05/22 Time of Service: 12:02 Care Management Safety Plan Status: Voluntary - Reason for Wait Reason for Wait: Inpatient Admission Per report, Domenic was brought to the ED by his brother, Carroll. He stated that he has been depressed for quite some time. He was intoxicated upon arrival. Once he became medically cleared, he was screened by [facility], and is currently voluntary for inpatient psychiatric treatment. He stated that he has access to firearms and his plan would be to shoot himself in the mouth to end his life. [facility]ic is [facility], and his brother contacted the [facility] prior to arrival, and was advised to bring him to [facility]. VOLUNTARY FOR INPATIENT PSYCHIATRIC STABILIZATION. Patient is appropriate in all interactions since arriving at [facility]; Pt has demonstrated appropriate coping and communication skills, has articulated his or her needs and concerns and is fully engaged during staff interactions. Safety plan has been established with patient, and care team, to adhere to patient goals, identify restrictions based on behavioral status, address nutrition, and determine allowed personal belongings, tools for hygiene and personal care. Determine level of activity including ambulation, level of supervision, visitors, and determine privileges based on behaviors and level of engagement by pt. SAFETY PLAN: 1. Will remain on suicide precautions. In Paper Clothes 2. Will remain in room under direct supervision of one-on-one staff at all times provided by [employer]; RU, [employer] director of automation. 3. May have paper cups, plates, finger foods as well as a cardboard spoon with which to eat meals. 4. Follow [facility] Management of the Admitted Behavioral Health Patient policy. 5. Comfort bath system only, shower permitted with escort at RN discretion. 6. No personal belongings-soft items permitted at RN discretion. 7. Visitors- supportive family members at RN discretion. 8. Activities: soft cart items approved per RN discretion. 9. Bathroom privileges with escort in the ED, available in room without limitation on M/S. 10. Phone: contact limited to family at this time, via cordless phone at RN discretion. 11. Due to VOLUNTARY status, if patient wishes to leave [facility], staff will contact [facility] Crisis Screener ([phone]) and On-Call Mains And Service Supervisor ([phone]) as soon as possible. In the event of elopement, notify [facility] Police ([phone]). Patient is currently voluntarily at [facility] and seeking inpatient admission when a bed becomes available. [facility] Frontline Cylinder Devalver will continue seeking placement. Please contact the [employer] Mains And Service Supervisor ([phone]) and [facility] Cylinder Devalver ([phone]) for any needed changes in the Safety Plan. Safety plan has been provided to interdepartmental care team.
--- NOTE | 2022-01-05 12:50 | NUR.NOTE ---
Nursing Note: [address] [place], [place], called back stating they did not have a bed for transfer today. Patient is service connected for PTSD. She stated we can admit here and they will pay. There may be a bed later this week.
--- NOTE | 2022-01-05 12:55 | ED.PROG_ITS ---
Date of service: 01/05/22 Time of Service: 12:55 Medical Decision Making Care signed out by Dr. Ludwig, please see her documentation regarding initial ED presentation and course, plan at signout was to wait for clinical sobriety and have mental health evaluate the patient. Patient clinically sober,[facility] crisis screener was consulted and evaluated the patient and recommends hospitalization for depression and suicidality. Patient is agreeable to this plan and will remain voluntarily. Plan to hospitalize while awaiting transfer to psychiatric treatment facility. Patient is high risk for alcohol withdrawal. He is not currently exhibiting alcohol withdrawal symptoms but does note that he typically has a beer early afternoon and that if he does not drink he feels shaky. I had called [facility] to see if they have capacity accept the patient transfer and they do not and recommended admission here. I called hospitalist on-call, Dr. Payne, discussed ED presentation course, she will admit the patient. Lab Data Lab results reviewed: Yes I reviewed the patient's lab results. Labs: Laboratory Tests Range/Units 01/05/22 01/05/22 01/05/22 00:50 00:50 00:50 WBC (4.4-10.8) 10^3/uL 7.82 RBC (4.36-5.78) 10^6/uL 5.29 Hgb (13.5-17.5) g/dL 16.8 Hct (40.0-50.0) % 47.1 MCV (80-95) fL 89 MCH (27.0-33.0) pg 31.8 MCHC (32.0-36.0) % 35.7 RDW (11.8-14.1) % 11.6 L Plt Count (130-400) 10^3/uL 300 MPV (8.0-11.0) fL 8.7 Immature Gran % 0.4 Neutrophils % 61.9 Lymphocytes % 30.6 Monocytes % 5.2 Eosinophils % 1.0 Basophils % 0.9 Nucleated RBC % (0.0-0.3) % 0.0 Absolute Neutrophils (1.2-6.7) 10^3/uL 4.84 Absolute Lymphocytes (1.2-3.4) 10^3/uL 2.39 Absolute Monocytes (0.1-0.8) 10^3/uL 0.41 Absolute Eosinophils (0.0-0.7) 10^3/uL 0.08 Absolute Basophils (0.0-0.2) 10^3/uL 0.07 Sodium (136-145) mmol/L 139 Potassium (3.5-5.1) mmol/L 4.0 Chloride (98-107) mmol/L 97 L Carbon Dioxide (21.0-32.0) mmol/L 20.1 L Anion Gap (3-11) mmol/L 21.9 H BUN (7-18) mg/dL 17 Creatinine (0.70-1.30) mg/dL 1.1 Est GFR (CKD-EPI 2020) (mL/min/1.73m2) 91.47 Glucose (74-106) mg/dL 192 H Calcium (8.5-10.1) mg/dL 8.9 Magnesium (1.8-2.4) mg/dL Total Bilirubin (0.2-1.0) mg/dL 0.4 AST (15-37) U/L 73 H ALT (16-63) U/L 89 H Alkaline Phosphatase (46-116) U/L 86 Total Protein (6.4-8.2) g/dL 9.0 H Albumin (3.4-5.0) g/dL 4.6 TSH (0.36-3.74) uIU/mL 2.37 Urine Color (Yellow) Urine Clarity (Clear) Urine pH (5-8) Ur Specific [place] (1.005-1.025) Urine Protein (Negative) mg/dL Urine Ketones (Negative) mg/dL Urine Blood (Negative) Urine Nitrite (Negative) Urine Bilirubin (Negative) Urine Urobilinogen (Up TO 0.2) EU/dL Ur Leukocyte Esterase (Negative) Urine RBC (0-2) HPF Urine WBC (0-5) HPF Ur Epithelial Cells (Negative) HPF Urine Crystals (Negative) HPF Urine Bacteria (Negative) HPF Urine Mucus (Negative) Ur Culture Indicated? Urine Glucose (Negative) mg/dL Urine Opiates Screen (Negative) Urine Methadone Screen (Negative) Ur Barbiturates Screen (Negative) Ur Tricyclics Screen (Negative) Ur Amphetamines Screen (Negative) U Benzodiazepines Scrn (Negative) Urine Cocaine Screen (Negative) Ur THC Screen (Negative) Ethyl Alcohol (<10) mg/dL 307.6 H COVID-19 Source SARS-CoV-2 (PCR) (Negative) Range/Units 01/05/22 01/05/22 01/05/22 01:00 01:04 01:05 WBC (4.4-10.8) 10^3/uL RBC (4.36-5.78) 10^6/uL Hgb (13.5-17.5) g/dL Hct (40.0-50.0) % MCV (80-95) fL MCH (27.0-33.0) pg MCHC (32.0-36.0) % RDW (11.8-14.1) % Plt Count (130-400) 10^3/uL MPV (8.0-11.0) fL Immature Gran % Neutrophils % Lymphocytes % Monocytes % Eosinophils % Basophils % Nucleated RBC % (0.0-0.3) % Absolute Neutrophils (1.2-6.7) 10^3/uL Absolute Lymphocytes (1.2-3.4) 10^3/uL Absolute Monocytes (0.1-0.8) 10^3/uL Absolute Eosinophils (0.0-0.7) 10^3/uL Absolute Basophils (0.0-0.2) 10^3/uL Sodium (136-145) mmol/L Potassium (3.5-5.1) mmol/L Chloride (98-107) mmol/L Carbon Dioxide (21.0-32.0) mmol/L Anion Gap (3-11) mmol/L BUN (7-18) mg/dL Creatinine (0.70-1.30) mg/dL Est GFR (CKD-EPI 2020) (mL/min/1.73m2) Glucose (74-106) mg/dL Calcium (8.5-10.1) mg/dL Magnesium (1.8-2.4) mg/dL Total Bilirubin (0.2-1.0) mg/dL AST (15-37) U/L ALT (16-63) U/L Alkaline Phosphatase (46-116) U/L Total Protein (6.4-8.2) g/dL Albumin (3.4-5.0) g/dL TSH (0.36-3.74) uIU/mL Urine Color (Yellow) Yellow Urine Clarity (Clear) Clear Urine pH (5-8) 5.5 Ur Specific [place] (1.005-1.025) 1.010 Urine Protein (Negative) mg/dL Negative Urine Ketones (Negative) mg/dL Trace H Urine Blood (Negative) Trace-lysed H Urine Nitrite (Negative) Negative Urine Bilirubin (Negative) Negative Urine Urobilinogen (Up TO 0.2) EU/dL 0.2 Ur Leukocyte Esterase (Negative) Negative Urine RBC (0-2) HPF 0-2 Urine WBC (0-5) HPF 0-2 Ur Epithelial Cells (Negative) HPF Rare Urine Crystals (Negative) HPF Negative Urine Bacteria (Negative) HPF Rare Urine Mucus (Negative) Negative Ur Culture Indicated? No Urine Glucose (Negative) mg/dL 500 H Urine Opiates Screen (Negative) Negative Urine Methadone Screen (Negative) Negative Ur Barbiturates Screen (Negative) Negative Ur Tricyclics Screen (Negative) Negative Ur Amphetamines Screen (Negative) Negative U Benzodiazepines Scrn (Negative) Negative Urine Cocaine Screen (Negative) Positive A Ur THC Screen (Negative) Negative Ethyl Alcohol (<10) mg/dL COVID-19 Source Nasal/Nares SARS-CoV-2 (PCR) (Negative) Negative Range/Units 01/05/22 01/05/22 01/05/22 03:03 03:03 07:30 WBC (4.4-10.8) 10^3/uL RBC (4.36-5.78) 10^6/uL Hgb (13.5-17.5) g/dL Hct (40.0-50.0) % MCV (80-95) fL MCH (27.0-33.0) pg MCHC (32.0-36.0) % RDW (11.8-14.1) % Plt Count (130-400) 10^3/uL MPV (8.0-11.0) fL Immature Gran % Neutrophils % Lymphocytes % Monocytes % Eosinophils % Basophils % Nucleated RBC % (0.0-0.3) % Absolute Neutrophils (1.2-6.7) 10^3/uL Absolute Lymphocytes (1.2-3.4) 10^3/uL Absolute Monocytes (0.1-0.8) 10^3/uL Absolute Eosinophils (0.0-0.7) 10^3/uL Absolute Basophils (0.0-0.2) 10^3/uL Sodium (136-145) mmol/L 142 143 Potassium (3.5-5.1) mmol/L 4.0 4.1 Chloride (98-107) mmol/L 104 104 Carbon Dioxide (21.0-32.0) mmol/L 23.1 26.3 Anion Gap (3-11) mmol/L 14.9 H 12.7 H BUN (7-18) mg/dL 16 14 Creatinine (0.70-1.30) mg/dL 0.9 1.0 Est GFR (CKD-EPI 2020) (mL/min/1.73m2) 116.37 102.55 Glucose (74-106) mg/dL 151 H 98 Calcium (8.5-10.1) mg/dL 7.5 L 8.0 L Magnesium (1.8-2.4) mg/dL 2.1 Total Bilirubin (0.2-1.0) mg/dL AST (15-37) U/L ALT (16-63) U/L Alkaline Phosphatase (46-116) U/L Total Protein (6.4-8.2) g/dL Albumin (3.4-5.0) g/dL TSH (0.36-3.74) uIU/mL Urine Color (Yellow) Urine Clarity (Clear) Urine pH (5-8) Ur Specific [place] (1.005-1.025) Urine Protein (Negative) mg/dL Urine Ketones (Negative) mg/dL Urine Blood (Negative) Urine Nitrite (Negative) Urine Bilirubin (Negative) Urine Urobilinogen (Up TO 0.2) EU/dL Ur Leukocyte Esterase (Negative) Urine RBC (0-2) HPF Urine WBC (0-5) HPF Ur Epithelial Cells (Negative) HPF Urine Crystals (Negative) HPF Urine Bacteria (Negative) HPF Urine Mucus (Negative) Ur Culture Indicated? Urine Glucose (Negative) mg/dL Urine Opiates Screen (Negative) Urine Methadone Screen (Negative) Ur Barbiturates Screen (Negative) Ur Tricyclics Screen (Negative) Ur Amphetamines Screen (Negative) U Benzodiazepines Scrn (Negative) Urine Cocaine Screen (Negative) Ur THC Screen (Negative) Ethyl Alcohol (<10) mg/dL COVID-19 Source SARS-CoV-2 (PCR) (Negative) Range/Units 01/05/22 07:41 WBC (4.4-10.8) 10^3/uL RBC (4.36-5.78) 10^6/uL Hgb (13.5-17.5) g/dL Hct (40.0-50.0) % MCV (80-95) fL MCH (27.0-33.0) pg MCHC (32.0-36.0) % RDW (11.8-14.1) % Plt Count (130-400) 10^3/uL MPV (8.0-11.0) fL Immature Gran % Neutrophils % Lymphocytes % Monocytes % Eosinophils % Basophils % Nucleated RBC % (0.0-0.3) % Absolute Neutrophils (1.2-6.7) 10^3/uL Absolute Lymphocytes (1.2-3.4) 10^3/uL Absolute Monocytes (0.1-0.8) 10^3/uL Absolute Eosinophils (0.0-0.7) 10^3/uL Absolute Basophils (0.0-0.2) 10^3/uL Sodium (136-145) mmol/L Potassium (3.5-5.1) mmol/L Chloride (98-107) mmol/L Carbon Dioxide (21.0-32.0) mmol/L Anion Gap (3-11) mmol/L BUN (7-18) mg/dL Creatinine (0.70-1.30) mg/dL Est GFR (CKD-EPI 2020) (mL/min/1.73m2) Glucose (74-106) mg/dL Calcium (8.5-10.1) mg/dL Magnesium (1.8-2.4) mg/dL Total Bilirubin (0.2-1.0) mg/dL AST (15-37) U/L ALT (16-63) U/L Alkaline Phosphatase (46-116) U/L Total Protein (6.4-8.2) g/dL Albumin (3.4-5.0) g/dL TSH (0.36-3.74) uIU/mL Urine Color (Yellow) Urine Clarity (Clear) Urine pH (5-8) Ur Specific [place] (1.005-1.025) Urine Protein (Negative) mg/dL Urine Ketones (Negative) mg/dL Urine Blood (Negative) Urine Nitrite (Negative) Urine Bilirubin (Negative) Urine Urobilinogen (Up TO 0.2) EU/dL Ur Leukocyte Esterase (Negative) Urine RBC (0-2) HPF Urine WBC (0-5) HPF Ur Epithelial Cells (Negative) HPF Urine Crystals (Negative) HPF Urine Bacteria (Negative) HPF Urine Mucus (Negative) Ur Culture Indicated? Urine Glucose (Negative) mg/dL Urine Opiates Screen (Negative) Urine Methadone Screen (Negative) Ur Barbiturates Screen (Negative) Ur Tricyclics Screen (Negative) Ur Amphetamines Screen (Negative) U Benzodiazepines Scrn (Negative) Urine Cocaine Screen (Negative) Ur THC Screen (Negative) Ethyl Alcohol (<10) mg/dL COVID-19 Source Cancelled SARS-CoV-2 (PCR) (Negative) Cancelled Sign Out Sign Out Data: Sign Out Comment: Intoxicated. SI. Will be medically cleared to speak with mental health at 1300 when alcohol level 0. Last updated by Priya Ludwig DO at 01/05/22 02:20 Discharge Plan Disposition Patient Disposition: [facility] INPATIENT Condition: Serious Discharge Details Clinical Impression: Depression, Suicidal thoughts, Alcohol intoxication, Alcohol use disorder, severe, dependence Primary Care Provider: [facility] ED Provider: River Rosenbaum Home Meds and New Rx's Prescriptions: No Action alprazolam [Xanax] 0.5 mg tablet 0.5 mg PO DAILY PRN (Reason: anxiety) Qty: 5 0RF Rx Instructions: If needed for anxiety alprazolam 0.5 mg tablet 0.5 mg PO Label Comments: TAKE 1 TABLET BY MOUTH DAILY FOR ANXIETY NEEDED Jardiance 10 mg Tablet
--- NOTE | 2022-01-05 12:58 | W.PM.HP.N ---
Date of service: 01/05/22 Time of Service: 12:58 Assessment and Plan Assessment and plan (1) Alcohol use disorder, severe, dependence: Status: Acute Assessment and plan: will place on ciwa, benzodiazepine protocol prn discussed phenobarb protocol and he declines at this time. no reported withdrawal seizures or hospitalizations, states he gets a little shaky at times. (2) Suicidal thoughts: Status: Acute Assessment and plan: has plan with access to follow through. plan for inpatient psychiatric treatment, mental health deems appropriate for voluntary placement. cpso, safety plan, suicidal precautions. (3) Depression: Status: Chronic Assessment and plan: plan for inpatient treatment. discussed with DR Payne History of Present Illness History of Present Illness Chief Complaint: major depression, suicidal ideation, alcohol abuse Narrative: this is a 31 year old male who presents to the ED for evaluation of depression with suicidal ideation. [facility] and [facility] and was referred to ED for evaluation. He arrives intoxicated with family. plan is to shoot himself, he has guns. he reportedly also tried to jump out of care enroute. medical screening shows ETOH level of 300, he denies recent illness. he is held in the ED until clinically sober, medically cleared and screened by mental health. there are no behavioral issue with him while being held. he is deemed appropriate for and agreeable to voluntary inpatient psychiatric care. no beds available so he is admitted here while awaiting an opening. due to his reported daily heavy consumption it was thought to be reasonable to admit him to med/surg on ciwa to evaluate for withdrawal. cpso and suicide precautions will be maintained. Review of Systems All systems reviewed & are unremarkable except as noted in HPI and below Psychiatric Psychiatric: Reports depression and Reports suicidal ideation PFSH All Active Problems (Updated 01/05/22 @ 12:58 by River Rosenbaum MD) Depression (Chronic) Suicidal thoughts (Acute) Alcohol intoxication (Acute) Alcohol use disorder, severe, dependence (Acute) Chest pain (Acute) Medical History (Updated 01/05/22 @ 12:58 by River Rosenbaum MD) Anxiety Depression Diabetes Surgical History (Updated 01/05/22 @ 01:01 by Priya Ludwig DO) History of hernia repair Family History Father Heart disease Social History Smoking/Tobacco Use Status: Current-Occasional Tobacco Type: smokeless tobacco Smoking risk assessment performed?: Yes Alcohol Intake: former Drug use: Occasionally Substance use type: marijuana and crack/cocaine Details: self medicating Do you feel safe at home: Yes Do you feel safe in your relationship?: Yes Meds Allergies and Home Medications Allergies Allergy/AdvReac Type Severity Reaction Status Date / Time No Known Allergies Allergy Unverified 01/05/22 00:31 Home Medications Medication Instructions Recorded Confirmed Type alprazolam 0.5 mg tablet (Xanax) 0.5 mg PO DAILY PRN anxiety #5 tabs 11/30/21 01/05/22 Rx alprazolam 0.5 mg tablet 0.5 mg PO 01/05/22 History empagliflozin 10 mg tablet mg 01/05/22 History (Jardiance) Exam Const General: cooperative, healthy appearing, comfortable and no acute distress Nutritional Appearance: average body habitus Orientation: alert, awake and oriented x3 HENMT Head: normal to inspection, normocephalic and atraumatic Face and sinus: normal facial exam Mouth: oral mucosae normal Resp Effort & Inspection: normal respiratory effort Auscultation: clear to auscultation bilaterally Cardio Rate: regular rate Rhythm: regular rhythm GI Inspection: normal to inspection Palpation: soft Skin General skin exam: no rashes or lesions noted Neuro General: patient alert, patient awake and patient oriented x3 Extrem General: normal to inspection, full ROM and no pedal edema Psych Appearance: grossly normal and well kempt Mental Status: mental status grossly normal Speech and Movement: speech and movement normal Mood: congruent mood Affect: blunted Attitude: cooperative Thought Process: normal Thought Content: normal Insight: insight good Judgment: judgment good Results Labs Result diagrams: 01/05/22 00:50 01/06/22 06:10 Labs: Laboratory Results - last 24 hr 01/05/22 01/05/22 01/05/22 00:50 00:50 00:50 WBC 7.82 RBC 5.29 Hgb 16.8 Hct 47.1 MCV 89 MCH 31.8 MCHC 35.7 RDW 11.6 L Plt Count 300 MPV 8.7 Immature Gran % 0.4 Neutrophils % 61.9 Lymphocytes % 30.6 Monocytes % 5.2 Eosinophils % 1.0 Basophils % 0.9 Nucleated RBC % 0.0 Absolute Neutrophils 4.84 Absolute Lymphocytes 2.39 Absolute Monocytes 0.41 Absolute Eosinophils 0.08 Absolute Basophils 0.07 Sodium 139 Potassium 4.0 Chloride 97 L Carbon Dioxide 20.1 L Anion Gap 21.9 H BUN 17 Creatinine 1.1 Est GFR (CKD-EPI 2020) 91.47 Glucose 192 H Calcium 8.9 Magnesium Total Bilirubin 0.4 AST 73 H ALT 89 H Alkaline Phosphatase 86 Total Protein 9.0 H Albumin 4.6 TSH 2.37 Urine Color Urine Clarity Urine pH Ur Specific [place] Urine Protein Urine Ketones Urine Blood Urine Nitrite Urine Bilirubin Urine Urobilinogen Ur Leukocyte Esterase Urine RBC Urine WBC Ur Epithelial Cells Urine Crystals Urine Bacteria Urine Mucus Ur Culture Indicated? Urine Glucose Urine Opiates Screen Urine Methadone Screen Ur Barbiturates Screen Ur Tricyclics Screen Ur Amphetamines Screen U Benzodiazepines Scrn Urine Cocaine Screen Ur THC Screen Ethyl Alcohol 307.6 H COVID-19 Source SARS-CoV-2 (PCR) 01/05/22 01/05/22 01/05/22 01:00 01:04 01:05 WBC RBC Hgb Hct MCV MCH MCHC RDW Plt Count MPV Immature Gran % Neutrophils % Lymphocytes % Monocytes % Eosinophils % Basophils % Nucleated RBC % Absolute Neutrophils Absolute Lymphocytes Absolute Monocytes Absolute Eosinophils Absolute Basophils Sodium Potassium Chloride Carbon Dioxide Anion Gap BUN Creatinine Est GFR (CKD-EPI 2020) Glucose Calcium Magnesium Total Bilirubin AST ALT Alkaline Phosphatase Total Protein Albumin TSH Urine Color Yellow Urine Clarity Clear Urine pH 5.5 Ur Specific [place] 1.010 Urine Protein Negative Urine Ketones Trace H Urine Blood Trace-lysed H Urine Nitrite Negative Urine Bilirubin Negative Urine Urobilinogen 0.2 Ur Leukocyte Esterase Negative Urine RBC 0-2 Urine WBC 0-2 Ur Epithelial Cells Rare Urine Crystals Negative Urine Bacteria Rare Urine Mucus Negative Ur Culture Indicated? No Urine Glucose 500 H Urine Opiates Screen Negative Urine Methadone Screen Negative Ur Barbiturates Screen Negative Ur Tricyclics Screen Negative Ur Amphetamines Screen Negative U Benzodiazepines Scrn Negative Urine Cocaine Screen Positive A Ur THC Screen Negative Ethyl Alcohol COVID-19 Source Nasal/Nares SARS-CoV-2 (PCR) Negative 01/05/22 01/05/22 01/05/22 03:03 03:03 07:30 WBC RBC Hgb Hct MCV MCH MCHC RDW Plt Count MPV Immature Gran % Neutrophils % Lymphocytes % Monocytes % Eosinophils % Basophils % Nucleated RBC % Absolute Neutrophils Absolute Lymphocytes Absolute Monocytes Absolute Eosinophils Absolute Basophils Sodium 142 143 Potassium 4.0 4.1 Chloride 104 104 Carbon Dioxide 23.1 26.3 Anion Gap 14.9 H 12.7 H BUN 16 14 Creatinine 0.9 1.0 Est GFR (CKD-EPI 2020) 116.37 102.55 Glucose 151 H 98 Calcium 7.5 L 8.0 L Magnesium 2.1 Total Bilirubin AST ALT Alkaline Phosphatase Total Protein Albumin TSH Urine Color Urine Clarity Urine pH Ur Specific [place] Urine Protein Urine Ketones Urine Blood Urine Nitrite Urine Bilirubin Urine Urobilinogen Ur Leukocyte Esterase Urine RBC Urine WBC Ur Epithelial Cells Urine Crystals Urine Bacteria Urine Mucus Ur Culture Indicated? Urine Glucose Urine Opiates Screen Urine Methadone Screen Ur Barbiturates Screen Ur Tricyclics Screen Ur Amphetamines Screen U Benzodiazepines Scrn Urine Cocaine Screen Ur THC Screen Ethyl Alcohol COVID-19 Source SARS-CoV-2 (PCR) 01/05/22 07:41 WBC RBC Hgb Hct MCV MCH MCHC RDW Plt Count MPV Immature Gran % Neutrophils % Lymphocytes % Monocytes % Eosinophils % Basophils % Nucleated RBC % Absolute Neutrophils Absolute Lymphocytes Absolute Monocytes Absolute Eosinophils Absolute Basophils Sodium Potassium Chloride Carbon Dioxide Anion Gap BUN Creatinine Est GFR (CKD-EPI 2020) Glucose Calcium Magnesium Total Bilirubin AST ALT Alkaline Phosphatase Total Protein Albumin TSH Urine Color Urine Clarity Urine pH Ur Specific [place] Urine Protein Urine Ketones Urine Blood Urine Nitrite Urine Bilirubin Urine Urobilinogen Ur Leukocyte Esterase Urine RBC Urine WBC Ur Epithelial Cells Urine Crystals Urine Bacteria Urine Mucus Ur Culture Indicated? Urine Glucose Urine Opiates Screen Urine Methadone Screen Ur Barbiturates Screen Ur Tricyclics Screen Ur Amphetamines Screen U Benzodiazepines Scrn Urine Cocaine Screen Ur THC Screen Ethyl Alcohol COVID-19 Source Cancelled SARS-CoV-2 (PCR) Cancelled Last Vital Signs Temp 36.6 C 01/05/22 00:25 Pulse 85 01/05/22 07:37 Resp 20 01/05/22 07:37 BP 114/78 01/05/22 07:37 Pulse Ox 100 01/05/22 07:37 PAWSS Have you Been Recently Intoxicated or Drunk Within the Last 30 days?: Yes Have you Ever Experienced Previous Episodes of Alcohol Withdrawal?: No Have you ever Experienced Withdrawal Seizures?: No Have you ever Experienced Delirium Tremens(DT)s?: No Have you ever undergone Alcohol Rehabilitation Treatment (i.e, inpt ot outpatient treatment programs)?: Yes Have you ever Experienced Blackouts?: No Have you ever Combined Alcohol with other Downers within the last 90 days?: Yes Have you ever Combined Alcohol with any other Substance of Abuse during the last 90 days?: Yes Result: 4
--- NOTE | 2022-01-05 13:15 | NUR.NOTE ---
Nursing Note: brother is Harvey [phone].
[2022-01-05] MEDS: Insulin Aspart 300 UNITS/3 ML PEN SC (21:24)
[2022-01-06 06:42] LABS: ALT 79 U/L (16-63); AST 54 U/L (15-37); Albumin 3.7 g/dL (3.4-5.0); Alkaline Phosphatase 63 U/L (46-116); Anion Gap 10.9 mmol/L (3-11); BUN 19 mg/dL (7-18); Bilirubin, Direct 0.1 mg/dL (0.0-0.2); Bilirubin, Total 0.7 mg/dL (0.2-1.0); CO2 25.1 mmol/L (21.0-32.0); CREATININE 0.9 mg/dL (0.70-1.30); Calcium 8.8 mg/dL (8.5-10.1); Chloride 101 mmol/L (98-107); Estimated GFR 116.37 (mL/min/1.73m2); Glucose 161 mg/dL (74-106); Magnesium 1.9 mg/dL (1.8-2.4); Potassium 3.9 mmol/L (3.5-5.1); Sodium 137 mmol/L (136-145); Total Protein 7.2 g/dL (6.4-8.2)
[2022-01-06 08:02] VITALS: BP 112/75; PULSE 66; RESP 17; TEMP 36.2; O2SAT 98
[2022-01-06] MEDS: Empaglifozin 10 MG TAB PO (08:06)
[2022-01-06] MEDS: Thiamine 100 MG TAB PO (08:06)
[2022-01-06] MEDS: Normal Saline Flush 10 ML SYR IVP (08:06)
[2022-01-06] MEDS: Insulin Aspart 300 UNITS/3 ML PEN SC ×4 (08:08→21:29)
[2022-01-06] MEDS: hydrOXYzine HCL 25 MG TAB PO (10:02)
--- NOTE | 2022-01-06 10:12 | W.INDIABCONS ---
Date of service: 01/06/22 Time of Service: 10:12 Diabetes Inpatient Consult Reason for Visit: diabetes education DESCRIPTION/ASSESSMENT: Consult request for diabetes education. Mr. Garcia states that he has type 2 diabetes. He was diagnosed recently. He said his A1C was 10.1 at dx and is now down to 6.8. His BMI is only 19.9 kg/m2. He takes Jardiance at home. Blood sugars here have been at target. INTERVENTION: Mr. Garcia states he feels good about how he cares for his diabetes. As noted above his A1C is at target. We discussed that he does not have the typical presentation for type 2 diabetes given his BMI of 19, his physical activity and his age. Encouraged him to check in with a CDCES either here or at [place] should he desire some support around his diabetes in the future. PLAN: Will monitor blood glucose, weight, PO. Will evaluate nutrition care plan ongoing and adjust as needed. Time Spent in Nutritional Counseling and Treatment: 5 minutes
--- NOTE | 2022-01-06 11:22 | CMSP_ITS ---
- If Service Date Differs Date of service: 01/06/22 Time of Service: 11:22 Care Management Safety Plan Status: Voluntary - Reason for Wait Reason for Wait: Inpatient Admission, Medical Clearance Per report, Domenic was brought to the ED by his brother, Harvey. He stated that he has been depressed for quite some time. He was intoxicated upon arrival. Once he became medically cleared, he was screened by [facility], and is currently voluntary for inpatient psychiatric treatment. He stated that he has access to firearms and his plan would be to shoot himself in the mouth to end his life. [facility]ic is [facility], and his brother contacted the MD prior to arrival, and was advised to bring him to [facility]. VOLUNTARY FOR INPATIENT PSYCHIATRIC STABILIZATION. Patient is appropriate in all interactions since arriving at [facility]; Pt has demonstrated appropriate coping and communication skills, has articulated his or her needs and concerns and is fully engaged during staff interactions. Safety plan has been established with patient, and care team, to adhere to patient goals, identify restrictions based on behavioral status, address nutrition, and determine allowed personal belongings, tools for hygiene and personal care. Determine level of activity including ambulation, level of supervision, visitors, and determine privileges based on behaviors and level of engagement by pt. SAFETY PLAN: 1. Will remain on suicide precautions. In Paper Clothes. Mikal requested his own shorts, which he can wear at RN discretion. 2. Will remain in room under direct supervision of one-on-one staff at all times provided by [employer]; RU, PROFILE SHAPER OPERATOR data sciences director. 3. May have paper cups, plates, finger foods as well as a cardboard spoon with which to eat meals. 4. Follow [facility] Management of the Admitted Behavioral Health Patient policy. 5. Comfort bath system only, shower permitted with escort at RN discretion. 6. No personal belongings-soft items permitted at RN discretion. 7. Visitors- supportive family members at RN discretion. 8. Activities: soft cart items approved per RN discretion. 9. Bathroom privileges with escort in the ED, available in room without limitation on M/S. Due to Domenic being in a medical room until he becomes medically cleared, he will be given privacy when using the bathroom. CPSO will step out and wait outside of the room, with the door cracked open. 10. Phone: contact limited to family at this time, via cordless phone at RN discretion. 11. Due to VOLUNTARY status, if patient wishes to leave [facility], staff will contact [facility] Crisis Screener ([phone]) and On-Call Inventory Coordinator ([phone]) as soon as possible. In the event of elopement, notify [facility] Police ([phone]). Patient is currently voluntarily at [facility] and seeking inpatient admission when a bed becomes available. [facility] Frontline Process Engineering Intern will continue seeking placement. Please contact the Head Athletic Trainer/Strength Coach Inventory Coordinator ([phone]) and [facility] Process Engineering Intern ([phone]) for any needed changes in the Safety Plan. Safety plan has been provided to interdepartmental care team.
--- NOTE | 2022-01-06 11:23 | PDOC.CMPRO ---
- If Service Date Differs Date of service: 01/06/22 Time of Service: 11:23 Care Management Progress Note S/O: Domenic was lying in bed when CM met with him. He reported that he is comfortable, but is hot in the room, and requested to be able to wear shorts. CM turned down his heat, at his request. CM reviewed the plan for him to remain at [facility] while being monitored for alcohol withdrawal. Once he is medically cleared, referrals will be sent to all facilities in [place] for inpatient psychiatric treatment. [facility] daily to inquire about [facility]. CM huddled with Missy RN, and Jessie RN Coordinator, regarding safety plan. Shorts were added, at RN discretion. It was also discussed that he can have privacy to use the bathroom while the CPSO steps just outside the room, and remains within earshot with the door cracked. CM will continue to support discharge planning considerations. A: Domenic is a 31 year old male admitted to [facility] on 01/05/22 for SI, alcohol use disorder. P: Domenic is being monitored on CIWA for potential withdrawal from alcohol. Once he is medically cleared, referrals to all inpatient psychiatric facilities will resume. [facility]. [facility] will [facility] the [facility] transfer center daily to inquire about medical beds. If no beds are available and he becomes medically cleared, CM will continue to inquire about transfer to the [facility] for [facility] treatment. Secure transport will be arranged by CM once he has a bed offer. CM will continue to follow.
[2022-01-06] MEDS: LORazepam 1 MG TAB PO/SL (11:25)
[2022-01-06 15:30] VITALS: BP 117/75; PULSE 62; RESP 17; TEMP 37; O2SAT 99
--- NOTE | 2022-01-06 16:25 | W.PM.PROGNOT ---
Date of Service Date of service: 01/06/22 Time of Service: 16:25 Assessment and Plan Assessment and plan (1) Alcohol use disorder, severe, dependence: Status: Acute Assessment and plan: continue ciwa, benzodiazepine protocol prn max score 5. no reported withdrawal seizures or hospitalizations, states he gets a little shaky at times. (2) Suicidal thoughts: Status: Acute Assessment and plan: has plan with access to follow through. plan for inpatient psychiatric treatment, mental health deems appropriate for voluntary placement. cpso, safety plan, suicidal precautions. (3) Depression: Status: Chronic Assessment and plan: plan for inpatient treatment. discussed with DR Payne Subjective Subjective Patient reports: no new complaints, tolerating liquids well, tolerating a regular diet and afebrile Interval history since last seen: max ciwa 5, denies any c/o, states he slept well, no behavioral issues. Exam Const General: cooperative, healthy appearing, comfortable and no acute distress Nutritional Appearance: average body habitus Orientation: alert, awake and oriented x3 HENMT Head: normal to inspection, normocephalic and atraumatic Face and sinus: normal facial exam Mouth: oral mucosae normal Resp Effort & Inspection: normal respiratory effort Auscultation: clear to auscultation bilaterally Cardio Rate: regular rate Rhythm: regular rhythm GI Inspection: normal to inspection Palpation: soft Skin General skin exam: no rashes or lesions noted Neuro General: patient alert, patient awake and patient oriented x3 Extrem General: normal to inspection, full ROM and no pedal edema Psych Appearance: grossly normal and well kempt Mental Status: mental status grossly normal Speech and Movement: speech and movement normal Mood: congruent mood Affect: blunted Attitude: cooperative Thought Process: normal Thought Content: normal Insight: insight good Judgment: judgment good Objective Last Vital Signs Temp 37 C 01/06/22 15:30 Pulse 62 01/06/22 15:30 Resp 17 01/06/22 15:30 BP 117/75 01/06/22 15:30 Pulse Ox 99 01/06/22 15:30 Laboratory Results - last 24 hr 01/06/22 06:10 Sodium 137 Potassium 3.9 Chloride 101 Carbon Dioxide 25.1 Anion Gap 10.9 BUN 19 H Creatinine 0.9 Est GFR (CKD-EPI 2020) 116.37 Glucose 161 H Calcium 8.8 Magnesium 1.9 Total Bilirubin 0.7 Conjugated Bilirubin 0.1 AST 54 H ALT 79 H Alkaline Phosphatase 63 Total Protein 7.2 Albumin 3.7 PAWSS Have you Been Recently Intoxicated or Drunk Within the Last 30 days?: Yes Have you Ever Experienced Previous Episodes of Alcohol Withdrawal?: No Have you ever Experienced Withdrawal Seizures?: No Have you ever Experienced Delirium Tremens(DT)s?: No Have you ever undergone Alcohol Rehabilitation Treatment (i.e, inpt ot outpatient treatment programs)?: Yes Have you ever Experienced Blackouts?: No Have you ever Combined Alcohol with other Downers within the last 90 days?: Yes Have you ever Combined Alcohol with any other Substance of Abuse during the last 90 days?: Yes Result: 4
[2022-01-06 21:17] LABS: Glucose 424 mg/dL (74-106)
[2022-01-06 22:37] VITALS: BP 113/77; PULSE 74; RESP 16; TEMP 36.8; O2SAT 99
[2022-01-07] MEDS: Empaglifozin 10 MG TAB PO (08:17)
[2022-01-07] MEDS: Insulin Aspart 300 UNITS/3 ML PEN SC ×4 (08:17→21:06)
[2022-01-07] MEDS: Thiamine 100 MG TAB PO (08:17)
[2022-01-07 08:23] VITALS: BP 118/75; PULSE 57; RESP 16; TEMP 35.9; O2SAT 100
[2022-01-07 08:48] LABS: Anion Gap 7.2 mmol/L (3-11); BUN 20 mg/dL (7-18); CO2 30.8 mmol/L (21.0-32.0); CREATININE 1.1 mg/dL (0.70-1.30); Calcium 9.3 mg/dL (8.5-10.1); Chloride 97 mmol/L (98-107); Estimated GFR 91.47 (mL/min/1.73m2); Glucose 217 mg/dL (74-106); Potassium 4.3 mmol/L (3.5-5.1); Sodium 135 mmol/L (136-145)
[2022-01-07] MEDS: LORazepam 0.5 MG TAB PO ×2 (11:43→21:17)
[2022-01-07] MEDS: Multivitamin w/Minerals TAB 1 TAB PO (11:43)
--- NOTE | 2022-01-07 14:40 | CMPROGNOTE_ITS ---
- If Service Date Differs Date of service: 01/07/22 Time of Service: 14:40 Care Management Progress Note S/O: Mikal was medically cleared by today, and is ready for transfer to an inpatient psychiatric facility. [facility] called [facility] and [facility] bed this morning. CM will call the [facility] again to change the transfer request to inpatient psych. He was screened by JONAH Zamudio, today, who stated that he remains voluntary for placement. CM updated Domenic, stating that there are no beds at the [facility] currently. CM will continue to follow. A: Domenic is a 31 year old male admitted to [facility] on 01/05/22 for SI, alcohol use disorder. P: Domenic is being monitored on CIWA for potential withdrawal from alcohol. Once he is medically cleared, referrals to all inpatient psychiatric facilities will resume. [facility] would [facility]. CM will call the VA transfer center daily to inquire about medical beds. If no beds are available and he becomes medically cleared, CM will continue to inquire about transfer to the [facility] for inpatient psych treatment. Secure transport will be arranged by [facility] once he has a bed offer. CM will continue to follow.
--- NOTE | 2022-01-07 14:42 | CMSP_ITS ---
- If Service Date Differs Date of service: 01/07/22 Time of Service: 14:42 Care Management Safety Plan Status: Voluntary - Reason for Wait Reason for Wait: Inpatient Admission Per report, Domenic was brought to the ED by his brother, Harvey. He stated that he has been depressed for quite some time. He was intoxicated upon arrival. Once he became medically cleared, he was screened by [facility], and is currently voluntary for inpatient psychiatric treatment. He stated that he has access to firearms and his plan would be to shoot himself in the mouth to end his life. Domenic is [facility] connected, and his brother contacted the [place] prior to arrival, and was advised to bring him to [facility]. VOLUNTARY FOR INPATIENT PSYCHIATRIC STABILIZATION. Patient is appropriate in all interactions since arriving at [facility]; Pt has demonstrated appropriate coping and communication skills, has articulated his or her needs and concerns and is fully engaged during staff interactions. Safety plan has been established with patient, and care team, to adhere to patient goals, identify restrictions based on behavioral status, address nutrition, and determine allowed personal belongings, tools for hygiene and personal care. Determine level of activity including ambulation, level of supervision, visitors, and determine privileges based on behaviors and level of engagement by pt. SAFETY PLAN: 1. Will remain on suicide precautions. In Paper Clothes. Mikal requested his own shorts, which he can wear at RN discretion. 2. Will remain in room under direct supervision of one-on-one staff at all times provided by CPS[employer]; RU, BAKER SECOND cigarette packing machine operator. 3. May have paper cups, plates, finger foods as well as a cardboard spoon with which to eat meals. 4. Follow [facility] Management of the Admitted Behavioral Health Patient policy. 5. Comfort bath system only, shower permitted with escort at RN discretion. 6. No personal belongings-soft items permitted at RN discretion. 7. Visitors- supportive family members at RN discretion. 8. Activities: soft cart items approved per RN discretion. 9. Bathroom privileges with escort in the ED, available in room without limitation on M/S. Due to Domenic being in a medical room until he becomes medically cleared, he will be given privacy when using the bathroom. CPSO will step out and wait outside of the room, with the door cracked open. 10. Phone: contact limited to family at this time, via cordless phone at RN discretion. 11. Due to VOLUNTARY status, if patient wishes to leave [facility], staff will contact [facility] Crisis Screener ([phone]) and On-Call Fulfillment Associate ([phone]) as soon as possible. In the event of elopement, notify [facility] Police ([phone]). Patient is currently voluntarily at [facility] and seeking inpatient admission when a bed becomes available. [facility] Frontline Ultimate Hoops Scoreboard Operator will continue seeking placement. Please contact the Apricot Washer Fulfillment Associate ([phone]) and [facility] Ultimate Hoops Scoreboard Operator ([phone]) for any needed changes in the Safety Plan. Safety plan has been provided to interdepartmental care team.
[2022-01-07 15:31] VITALS: BP 125/86; PULSE 70; RESP 14; TEMP 36.1; O2SAT 99
--- NOTE | 2022-01-07 16:32 | W.PM.PROGNOT ---
Date of Service Date of service: 01/07/22 Time of Service: 16:32 Assessment and Plan Assessment and plan (1) Alcohol use disorder, severe, dependence: Status: Acute Assessment and plan: Discontinued CIWA, not scoring Medically stable and cleared for psychiatric in-pt admission (2) Suicidal thoughts: Status: Acute Assessment and plan: Plan for inpatient psychiatric treatment, mental health deems appropriate for voluntary placement; reassessed today and continues to recommend in-pt psychiatric treatment; he agrees with this POC cpso, safety plan, suicidal precautions. (3) Depression: Status: Chronic Assessment and plan: Plan for inpatient treatment, continue current medication [facility] called and [facility] not have any beds - they do not anticipate getting any before Tuesday01/11/[address] Payne Subjective Subjective Patient reports: no new complaints, tolerating a regular diet, voiding w/o difficulty, bowel movement and afebrile; denies diarrhea, nausea or vomiting Interval history since last seen: Awake, alert, pleasant semi fowlers on the bed. Exam Narrative Exam Narrative: Awake, alert, supine on the bed. Const General: cooperative, healthy appearing, comfortable and no acute distress Nutritional Appearance: average body habitus Orientation: alert, awake and oriented x3 HENMT Head: normal to inspection, normocephalic and atraumatic Face and sinus: normal facial exam Mouth: oral mucosae normal Resp Effort & Inspection: normal respiratory effort Auscultation: clear to auscultation bilaterally Cardio Rate: regular rate Rhythm: regular rhythm GI Inspection: normal to inspection Palpation: soft Skin General skin exam: no rashes or lesions noted Neuro General: patient alert, patient awake and patient oriented x3 Extrem General: normal to inspection, full ROM and no pedal edema Psych Appearance: grossly normal and well kempt Mental Status: mental status grossly normal Speech and Movement: speech and movement normal Mood: congruent mood Affect: blunted Attitude: cooperative Thought Process: normal Thought Content: normal Insight: insight good Judgment: judgment good Objective Last Vital Signs Temp 36.1 C L 01/07/22 15:31 Pulse 70 01/07/22 15:31 Resp 14 01/07/22 15:31 BP 125/86 01/07/22 15:31 Pulse Ox 99 01/07/22 15:31 Laboratory Results - last 24 hr 01/06/22 01/07/22 20:59 08:15 Sodium 135 L Potassium 4.3 Chloride 97 L Carbon Dioxide 30.8 Anion Gap 7.2 BUN 20 H Creatinine 1.1 Est GFR (CKD-EPI 2020) 91.47 Glucose 424 H 217 H Calcium 9.3 PAWSS Have you Been Recently Intoxicated or Drunk Within the Last 30 days?: Yes Have you Ever Experienced Previous Episodes of Alcohol Withdrawal?: No Have you ever Experienced Withdrawal Seizures?: No Have you ever Experienced Delirium Tremens(DT)s?: No Have you ever undergone Alcohol Rehabilitation Treatment (i.e, inpt ot outpatient treatment programs)?: Yes Have you ever Experienced Blackouts?: No Have you ever Combined Alcohol with other Downers within the last 90 days?: Yes Have you ever Combined Alcohol with any other Substance of Abuse during the last 90 days?: Yes Result: 4
[2022-01-07 20:11] VITALS: BP 115/75; PULSE 64; RESP 16; TEMP 36.3; O2SAT 99
[2022-01-07] MEDS: Insulin Glargine 300 UNITS/3 ML PEN SC (21:05)
[2022-01-07 23:30] VITALS: BP 115/75; PULSE 77; RESP 18; TEMP 36.3; O2SAT 98
[2022-01-08 08:00] VITALS: BP 110/73; PULSE 53; RESP 17; TEMP 36.1; O2SAT 99
[2022-01-08] MEDS: Empaglifozin 10 MG TAB PO (08:33)
[2022-01-08] MEDS: Thiamine 100 MG TAB PO (08:33)
[2022-01-08] MEDS: Multivitamin w/Minerals TAB 1 TAB PO (08:33)
[2022-01-08] MEDS: Insulin Aspart 300 UNITS/3 ML PEN SC ×2 (08:42→12:23)
--- NOTE | 2022-01-08 09:08 | W.PM.PROGNOT ---
Date of Service Date of service: 01/08/22 Time of Service: 09:08 Assessment and Plan Assessment and plan (1) Alcohol use disorder, severe, dependence: Status: Resolved Assessment and plan: No s/s of w/d Continues to be medically stable and cleared for psychiatric in-pt admission (2) Suicidal thoughts: Status: Acute Assessment and plan: reassessed today and continues to recommend in-pt psychiatric treatment; he agrees with this POC cpso, safety plan, suicidal precautions. (3) Depression: Status: Chronic Assessment and plan: Plan for inpatient treatment, continue current medication [facility] called and [facility] do not have any beds - they do not anticipate getting any before Tuesday01/11/2022 - there are other referrals out discussed with Dr Payne Subjective Subjective Patient reports: no new complaints, tolerating a regular diet, voiding w/o difficulty and bowel movement; denies diarrhea, nausea or vomiting Exam Narrative Exam Narrative: Awake, alert, semi-fowlers in bed. No new complaints. Const General: cooperative, healthy appearing, comfortable and no acute distress Nutritional Appearance: average body habitus Orientation: alert, awake and oriented x3 HENMT Head: normal to inspection, normocephalic and atraumatic Face and sinus: normal facial exam Mouth: oral mucosae normal Resp Effort & Inspection: normal respiratory effort Auscultation: clear to auscultation bilaterally Cardio Rate: regular rate Rhythm: regular rhythm GI Inspection: normal to inspection Palpation: soft Skin General skin exam: no rashes or lesions noted Neuro General: patient alert, patient awake and patient oriented x3 Extrem General: normal to inspection, full ROM and no pedal edema Psych Appearance: grossly normal and well kempt Mental Status: mental status grossly normal Speech and Movement: speech and movement normal Mood: congruent mood Affect: blunted Attitude: cooperative Thought Process: normal Thought Content: normal Insight: insight good Judgment: judgment good Objective Last Vital Signs Temp 36.1 C L 01/08/22 08:00 Pulse 53 L 01/08/22 08:00 Resp 17 01/08/22 08:00 BP 110/73 01/08/22 08:00 Pulse Ox 99 01/08/22 08:00 Reviewed Pertinent PMH: Yes PAWSS Have you Been Recently Intoxicated or Drunk Within the Last 30 days?: Yes Have you Ever Experienced Previous Episodes of Alcohol Withdrawal?: No Have you ever Experienced Withdrawal Seizures?: No Have you ever Experienced Delirium Tremens(DT)s?: No Have you ever undergone Alcohol Rehabilitation Treatment (i.e, inpt ot outpatient treatment programs)?: Yes Have you ever Experienced Blackouts?: No Have you ever Combined Alcohol with other Downers within the last 90 days?: Yes Have you ever Combined Alcohol with any other Substance of Abuse during the last 90 days?: Yes Result: 4
[2022-01-08 11:23] LABS: Source Nasal/Nares
[2022-01-08 11:57] LABS: COVID-19 PCR Negative (Negative)
[2022-01-08] MEDS: LORazepam 0.5 MG TAB PO (12:02)
--- NOTE | 2022-01-08 13:40 | DSE_ITS ---
Date of service: 01/08/22 Time of Service: 13:40 DS: Diagnosis Discharge Diagnosis (1) Alcohol use disorder, severe, dependence: Status: Resolved (2) Suicidal thoughts: Status: Acute (3) Depression: Status: Chronic Discharge Plan Disposition Patient Disposition: [facility] [place] Condition: Serious Discharge Details Reason For Visit: Suicidal Ideation, Alcohol Use Disorder Admit Date/Time: 01/05/22 12:53 Admit Provider: Jennifer Payne Attending Provider: Jennifer Payne Primary Care Provider: [facility],[place] Hospital Course Hospital Course: This is a 31 year old male patient who presented to the [facility] ED for evaluation of depression with suicidal ideation.? He is a [place] patient, he did call the [facility] in [facility] and was referred to the closest ED for evaluation.? He was intoxicated and a family member brought him to the ED.? The patient endorsed he had access to guns and had a plan to shoot himself.? Family reported he tried to jump out of the moving vehicle while enroute to the ED.? In the ED, his ETOH level of 300, he had a positive screen for cocaine. He denied recent illness.?EKG ? NSR.? WBC 7.82, NA 135, K 4.3, Glucose 217.? He remained in the ED until he was clinically sober, there he was screened by mental health. He had no behavioral issues. ?He was deemed appropriate for and agreeable to voluntary inpatient psychiatric care. No psychiatric beds available at the [place], [facility] or [facility], therefore he was admitted to the medical floor awaiting placement. ?Secondary to his ETOH level and self-report of daily heavy alcohol consumption he was placed on a CIWA scoring tool to evaluate for withdrawal.? CPSO and suic alyssia precautions in place.? After 24h he had not scored on the CIWA score and it was discontinued.? He has been cooperative, conversant and pleasant.? He is interested in seeking in-patient psychiatric care. He has been accepted at the [facility] and is transported there via EMS stable. Discussed with Dr Payne Home Meds and New Rx's Prescriptions: New Nicotrol 10 mg Cartridge 0 cartridge inhalation Q2H PRN PRNQty: 0 0RF lorazepam 0.5 mg Tablet 0.5 mg PO TID PRN PRNQty: 0 0RF thiamine mononitrate (vit B1) [Vitamin B-1 (mononitrate)] 100 mg Tablet 100 mg PO QAM Qty: 0 0RF One Daily Multi-Vit w-Mineral 4.5 mg iron Tablet 1 tab PO DAILY Qty: 0 0RF Continued Jardiance 10 mg Tablet Discontinued alprazolam [Xanax] 0.5 mg tablet 0.5 mg PO DAILY PRN (Reason: anxiety) Qty: 5 0RF Rx Instructions: If needed for anxiety alprazolam 0.5 mg tablet 0.5 mg PO Label Comments: TAKE 1 TABLET BY MOUTH DAILY FOR ANXIETY NEEDED Discharge Instructions Stand Alone Forms: Nursing Discharge Form Activity:: Activity as Tolerated Equipment/Supplies:: No Equipment Needed Diet:: As Tolerated Discharge Orders Discharge Orders: Discharge Order (Routine); Ordered 01/08/22 Ordered By: Diana Brown Discharge Data Discharge Date/Time-TO BE ENTERED AT DEPARTURE: 01/08/22 18:01 DS: Summary Time Spent with Patient providing and/or coordinating discharge services: Less than 30 minutes Status at Discharge Functional status at discharge: independent ambulation Overall status at discharge: patient is progressing back to baseline Mental Status: mental status grossly normal Speech and Movement: speech and movement normal Mood: congruent mood Affect: blunted Exam Narrative Exam Narrative: Awake, alert, sitting in the chair, good eye contact. Const General: cooperative, healthy appearing, comfortable and no acute distress Nutritional Appearance: average body habitus Orientation: alert, awake and oriented x3 HENMT Head: normal to inspection, normocephalic and atraumatic Face and sinus: normal facial exam Mouth: oral mucosae normal Resp Effort & Inspection: normal respiratory effort Auscultation: clear to auscultation bilaterally Cardio Rate: regular rate Rhythm: regular rhythm GI Inspection: normal to inspection Palpation: soft Skin General skin exam: no rashes or lesions noted Neuro General: patient alert, patient awake and patient oriented x3 Extrem General: normal to inspection, full ROM and no pedal edema Psych Appearance: grossly normal and well kempt Mental Status: mental status grossly normal Speech and Movement: speech and movement normal Mood: congruent mood Affect: blunted Attitude: cooperative Thought Process: normal Thought Content: normal Insight: insight good Judgment: judgment good DS: Data Vitals/I&O Vitals and I&O: Vital Signs Temperature 36.1 C L 01/08/22 08:00 Temperature Source Tympanic 01/08/22 08:00 Pulse 53 L 01/08/22 08:00 Pulse Rhythm Regular 01/07/22 23:41 Pulse 72 01/05/22 06:10 Respiratory Rate 17 01/08/22 08:00 Respiratory Effort Non-Labored 01/07/22 23:41 Respiratory Depth Normal 01/07/22 23:41 Respiratory Pattern Normal 01/07/22 23:41 Blood Pressure 110/73 01/08/22 08:00 Blood Pressure Mean 66 01/05/22 03:01 Blood Pressure Position Sitting 01/05/22 00:25 Pulse Oximetry 99 01/08/22 08:00 Oxygen Delivery Method Room Air 01/08/22 08:00 Oxygen Flow Rate 0 01/08/22 08:00 Pain Level 0 01/08/22 08:00 Comment 01/07/22 20:11 Intake & Output 01/07/22 01/08/22 01/08/22 23:59 11:59 23:59 Intake Total 1200 / 2560 250 / 730 480 / 730 Balance 1200 / 2560 250 / 730 480 / 730 Intake: Oral 1200 / 2560 250 / 730 480 / 730 Other: Urine Appearance Clear Stool Size Moderate Voiding Methods Toilet Toilet Data Completed and Pending Labs on day of discharge: Labs from last 24 hours 01/08/22 11:05 COVID-19 Source Nasal/Nares SARS-CoV-2 (PCR) Negative PFSH All Active Problems (Updated 01/09/22 @ 00:01 by JOVANNA JONES) Depression (Chronic) Suicidal thoughts (Acute) Chest pain (Acute) Medical History (Updated 01/09/22 @ 00:01 by JOVANNA JONES) Anxiety Depression Diabetes Surgical History (Updated 01/05/22 @ 01:01 by Priya Ludwig DO) History of hernia repair Family History Father Heart disease Social History Smoking/Tobacco Use Status: Current-Occasional Tobacco Type: smokeless tobacco Smoking risk assessment performed?: Yes Alcohol Intake: former Drug use: Occasionally Substance use type: marijuana and crack/cocaine Details: self medicating Do you feel safe at home: Yes Do you feel safe in your relationship?: Yes
--- NOTE | 2022-01-08 16:42 | PDOC.CMDIS ---
- If Service Date Differs Date of service: 01/08/22 Time of Service: 16:42 LACE Index Scoring Tool - Questions: Length of Stay (in days): 3 Acuity (Admit via E.D.?): Yes Comorbidities: Diabetes w/o Complication E.D. Visits: 3 - Answers: Total Score: 10 Risk of Readmission: High Risk Care Management Discharge Reason for Hospitalization: SI, alcohol use disorder Discharge Plan: [place] transferred to the [facility] this evening for inpatient psychiatric treatment. He transported via [facility]. He will follow up with his PCP and discharge plan of care. He is happy to be accepted at the [facility], where he receives support for his mental health needs in the community. Patient/Family Education Needs: Review discharge instructions and limitations, discussion of self care needs including ask me three. Services Needed at Discharge: [facility] ([facility]), [facility] ([facility]) - MH Services (Omit if N/A) Current [facility] Services: Other ([facility]) - Disposition Disposition: Other ([facility]) Transport via [facility] ([facility]
== END 2022-01-08 18:01 | disposition short-term general hospital (02) ==
LOC: ER 12:58 → MS 14:10
PROVIDERS: Family Medicine; Nurse Practitioner Acute Care; Nurse Practitioner Family; Physician Assistant; Admitting Provider Internal Medicine; Emergency Provider Student in an Organized Health Care Education/Training Program; Visit Provider Internal Medicine
DX: F32.A Depression, unspecified (principal); R45.851 Suicidal ideations; F10.220 Alcohol dependence with intoxication, uncomplicated; E11.9 Type 2 diabetes mellitus without complications; F41.9 Anxiety disorder, unspecified; F14.90 Cocaine use, unspecified, uncomplicated; R07.89 Other chest pain; F17.290 Nicotine dependence, other tobacco product, uncomplicated; F12.90 Cannabis use, unspecified, uncomplicated; Z20.822 Contact with and (suspected) exposure to COVID-19; Y90.8 Blood alcohol level of 240 mg/100 ml or more
CPT/HCPCS: 36415; 80048; 80053; 80076; 80307; 82947; 87635; 96360; 96361; 99285; 80320; 81003; 81015; 83735; 84443; 85025; 99217; 99219; 99225; 99232; G0378

== ENCOUNTER 2023-05-09 11:29 | Emergency (ER) | payer OTHER, SELFPAY ==
[2023-05-09 11:35] VITALS: BP 133/72; PULSE 69; RESP 18; TEMP 37.6; O2SAT 99
[2023-05-09 12:15] LABS: Bilirubin Negative (Negative); Blood Negative (Negative); Clarity Clear (Clear); Glucose 100 mg/dL (Negative); Ketones 15 mg/dL (Negative); Leukocyte Esterase Negative (Negative); Nitrite Negative (Negative); Specific Gravity 1.015 (1.005-1.025); Urobilinogen 0.2 mg/dL (Up to 0.2)
--- NOTE | 2023-05-09 12:33 | W.ED.GENAD ---
HPI General Date/Time Provider Initiated Documentation: 05/09/23 12:21. Limitations to Documentation: no limitations. Information obtained by: patient. HPI Narrative: 32-year-old male with history of depression and alcohol use disorder, presents with law enforcement for emergency evaluation based on warrant issued prior to arrival. Patient states that he expressed suicidality while he was intoxicated this weekend. He states he was drinking heavily Tuesday night into Tuesday. He has poor recollection of some events but notes he kicked in his door. He states that when he drinks alcohol things can get out of control. He notes he has not drank alcohol since yesterday. He is not suicidal or homicidal. He states that as long as he can refrain from drinking, he is able to control his emotions. Related Data Home Medications Medication Instructions Recorded Confirmed lorazepam 0.5 mg tablet 0.5 mg PO TID PRN PRN #0 tabs 01/08/22 05/09/23 multivitamin with minerals-ferrous 1 tab PO DAILY #0 tabs 01/08/22 05/09/23 sulfate 4.5 mg iron tablet (One Daily Multivitamins with Minerals) nicotine 10 mg inhalation 0 cartridge inhalation Q2H PRN PRN 01/08/22 05/09/23 cartridge (Nicotrol) #0 ea insulin aspart U-100 100 unit/mL 1 sliding scale dose subcut TID PRN 05/09/23 05/09/23 subcutaneous cartridge insulin glargine 100 unit/mL (3 17 unit subcut QDAY 05/09/23 05/09/23 mL) subcutaneous pen (Basaglar KwikPen U-100 Insulin) Previous Rx's Medication Instructions Recorded lorazepam 0.5 mg tablet 0.5 mg PO TID PRN PRN #0 tabs 01/08/22 multivitamin with minerals-ferrous 1 tab PO DAILY #0 tabs 01/08/22 sulfate 4.5 mg iron tablet (One Daily Multivitamins with Minerals) nicotine 10 mg inhalation 0 cartridge inhalation Q2H PRN PRN 01/08/22 cartridge (Nicotrol) #0 ea Allergies Allergy/AdvReac Type Severity Reaction Status Date / Time No Known Allergies Allergy Unverified 01/05/22 00:31 General Stated Complaint: PsychEval NASIM: 3 Exam Const General: cooperative and no acute distress HENMT Head: normocephalic and atraumatic Mouth: moist mucous membranes Eyes Conjunctivae: normal conjunctivae Sclera: normal sclerae Resp Auscultation: clear to auscultation bilaterally, no rales, no rhonchi and no wheezes Cardio Rate: regular rate and not tachycardic Rhythm: regular rhythm GI Palpation: soft, not firm, no guarding, not rigid and nontender Skin General skin exam: no rashes or lesions noted Neuro General: patient alert, patient awake and tone normal Psych Appearance: grossly normal Mental Status: mental status grossly normal Speech and Movement: speech and movement normal, not agitated and speech clear Affect: normal affect Attitude: cooperative Thought Process: normal Thought Content: normal, no homicidality and suicidality Insight: insight good Course Vital Signs Vital signs: Vital Signs Temperature 37.6 C H 05/09/23 11:35 Pulse 69 05/09/23 11:35 Respiratory Rate 18 05/09/23 11:35 Blood Pressure 133/72 05/09/23 11:35 Pulse Oximetry 99 05/09/23 11:35 Temperature 37.6 C H 05/09/23 11:35 Temperature Source Temporal Artery Scan 05/09/23 11:35 Pulse 69 05/09/23 11:35 Respiratory Rate 18 05/09/23 11:35 Respiratory Effort Normal, Non-Labored 05/09/23 11:38 Blood Pressure 133/72 05/09/23 11:35 Blood Pressure Position Sitting 05/09/23 11:35 Pulse Oximetry 99 05/09/23 11:35 Oxygen Delivery Method Room Air 05/09/23 11:35 Oxygen Flow Rate 0 05/09/23 11:35 Pain Level 0 05/09/23 11:35 Lab/Test Results Lab/Test Results: Laboratory Tests Range/Units 05/09/23 12:06 Urine Color (Yellow) Yellow Urine Clarity (Clear) Clear Urine pH (5-8) 7.0 Ur Specific Crock[place] (1.005-1.025) 1.015 Urine Protein (Negative) mg/dL Negative Urine Ketones (Negative) mg/dL 15 H Urine Blood (Negative) Negative Urine Nitrite (Negative) Negative Urine Bilirubin (Negative) Negative Urine Urobilinogen (Up to 0.2) mg/dL 0.2 Ur Leukocyte Esterase (Negative) Negative Urine Glucose (Negative) mg/dL 100 H Medical Decision Making 1241??32-year-old male with history of insulin-dependent diabetes, PTSD, depression, alcohol use disorder, here on warrant for emergency evaluation given recent behavior and expression of suicidality while he was drinking alcohol this past weekend. Patient states that he is not suicidal at this time. Urinalysis reviewed and patient does have a few ketones as well as glucose in his urine. I will check chemistry to assess for metabolic acidosis. -- Medical screening exam was performed and no acute medical condition identified. Patient cleared for psychiatric evaluation. I have contacted [facility] to discuss the case with [facility]. I have contacted [facility] for alcohol use disorder. --Labs reviewed and no anion gap acidosis. [id number] --patient was seen by [facility] coach who offered resources. Patient was seen by [facility] who recommends discharge with outpatient follow-up. A safety plan has been established with the patient. Patient is agreeable with this plan and understands he can return to the ER at anytime for worsening or new concerning symptoms. Safety plan includes daily check-in's and firearms will be secured by . Lab Data Lab results reviewed: Yes I reviewed the patient's lab results. Labs: Laboratory Tests Range/Units 05/09/23 05/09/23 12:02 12:06 WBC (4.4-10.8) 10^3/uL 5.45 RBC (4.36-5.78) 10^6/uL 5.17 Hgb (13.5-17.5) g/dL 15.8 Hct (40.0-50.0) % 45.4 MCV (80-95) fL 88 MCH (27.0-33.0) pg 30.6 MCHC (32.0-36.0) % 34.8 RDW (11.8-14.1) % 11.2 L Plt Count (130-400) 10^3/uL 221 MPV (8.0-11.0) fL 9.2 Immature Gran % 0.2 Neutrophils % 64.0 Lymphocytes % 23.7 Monocytes % 10.6 Eosinophils % 0.6 Basophils % 0.9 Nucleated RBC % (0.0-0.3) % 0.0 Absolute Neutrophils (1.2-6.7) 10^3/uL 3.49 Absolute Lymphocytes (1.2-3.4) 10^3/uL 1.29 Absolute Monocytes (0.1-0.8) 10^3/uL 0.58 Absolute Eosinophils (0.0-0.7) 10^3/uL 0.03 Absolute Basophils (0.0-0.2) 10^3/uL 0.05 Sodium (136-145) mmol/L 140 Potassium (3.5-5.1) mmol/L 3.9 Chloride (98-107) mmol/L 100 Carbon Dioxide (21.0-32.0) mmol/L 29.8 Anion Gap (3-11) mmol/L 10.2 BUN (7-18) mg/dL 15 Creatinine (0.70-1.30) mg/dL 0.9 Est GFR (CKD-EPI 2020) (mL/min/1.73m2) 115.65 Glucose (74-106) mg/dL 148 H Calcium (8.5-10.1) mg/dL 9.4 Total Bilirubin (0.2-1.0) mg/dL 1.3 H AST (15-37) U/L 30 ALT (16-63) U/L 53 Alkaline Phosphatase (46-116) U/L 63 Total Protein (6.4-8.2) g/dL 7.9 Albumin (3.4-5.0) g/dL 4.1 Urine Color (Yellow) Yellow Urine Clarity (Clear) Clear Urine pH (5-8) 7.0 Ur Specific Crockett (1.005-1.025) 1.015 Urine Protein (Negative) mg/dL Negative Urine Ketones (Negative) mg/dL 15 H Urine Blood (Negative) Negative Urine Nitrite (Negative) Negative Urine Bilirubin (Negative) Negative Urine Urobilinogen (Up to 0.2) mg/dL 0.2 Ur Leukocyte Esterase (Negative) Negative Urine Glucose (Negative) mg/dL 100 H Salicylates (<2.8) mg/dL < 2.8 Urine Opiates Screen (Negative) Negative Urine Methadone Screen (Negative) Negative Acetaminophen (10-30) ug/mL < 2 Ur Barbiturates Screen (Negative) Negative Ur Tricyclics Screen (Negative) Negative Ur Amphetamines Screen (Negative) Negative U Benzodiazepines Scrn (Negative) Negative Urine Cocaine Screen (Negative) Negative Ur THC Screen (Negative) Negative Ethyl Alcohol (<10) mg/dL < 3.0 Quality:SDOH Health Related Social Needs: No Data to Display PFSH All Active Problems (Updated 05/09/23 @ 15:04 by River Rosenbaum MD) Elevated blood sugar (Acute) Alcohol use disorder (Acute) Suicide ideation (Acute) Depression (Chronic) Suicidal thoughts (Acute) Chest pain (Acute) Medical History Depression Anxiety Diabetes Surgical History History of hernia repair Family History Father Heart disease Social History Smoking/Tobacco Use Status: Current-Occasional Tobacco Type: smokeless tobacco Smoking risk assessment performed?: Yes Alcohol Intake: current Alcohol Intake frequency: 3 or more drinks per day Alcohol type: beer and hard liquor Drug use: Occasionally Substance use type: does not use and former substance user Details: denies current substances aside from ETOH. Per pt, usually about 10 drinks a day beer or hard liquor Do you feel safe at home: Yes Do you feel safe in your relationship?: Yes PAWSS Have you Been Recently Intoxicated or Drunk Within the Last 30 days?: Yes Have you Ever Experienced Previous Episodes of Alcohol Withdrawal?: No Have you ever Experienced Withdrawal Seizures?: No Have you ever Experienced Delirium Tremens(DT)s?: No Have you ever undergone Alcohol Rehabilitation Treatment (i.e, inpt ot outpatient treatment programs)?: Yes Have you ever Experienced Blackouts?: No Have you ever Combined Alcohol with other Downers within the last 90 days?: No Have you ever Combined Alcohol with any other Substance of Abuse during the last 90 days?: No Positive Blood Alcohol level on Presentation? [PCS.BAL]: Yes Evidence of Increased Autonomic Activity (i.e. HR>120, tremor, sweating, agitation, nausea)?: No Result: 3 Discharge Plan Disposition Patient Disposition: Home Condition: Stable Discharge Details Clinical Impression: Suicide ideation, Alcohol use disorder, Elevated blood sugar Primary Care Provider: [facility],[place] ED Provider: River Rosenbaum Home Meds and New Rx's Prescriptions: Continued Nicotrol 10 mg Cartridge 0 cartridge inhalation Q2H PRN PRNQty: 0 0RF lorazepam 0.5 mg Tablet 0.5 mg PO TID PRN PRNQty: 0 0RF One Daily Multi-Vit w-Mineral 4.5 mg iron Tablet 1 tab PO DAILY Qty: 0 0RF insulin glargine [Basaglar KwikPen U-100 Insulin] 100 unit/mL (3 mL) insulin pen 17 unit subcut QDAY insulin aspart U-100 100 unit/mL cartridge 1 sliding scale dose subcut TID PRN Rx Instructions: TAKE BASED ON CARBOHYDRATE INTAKE W/ MEALS Discharge Instructions Instructions: Depression (ED), Abuse of Alcohol (ED) Additional Instructions: Please contact your primary care physician to arrange follow-up. Please follow safety plan as discussed with crisis screener. Firearms should remains secured by your relative. He should not have access to these until cleared by your psychiatric primary care coordinator. Return to the ER immediately for any worsening or new concerning symptoms. Please know that we are here 24/7 every day to help. Referrals: [facility] [Provider Group] [facility] [Outside] [facility] [Primary Care Provider] -
[2023-05-09 12:48] LABS: *AMPHETAMINES SCREEN URINE Negative (Negative); *BARBITURATES SCREEN URINE Negative (Negative); *BENZODIAZEPINES SCREEN URINE Negative (Negative); Cannabinoids THC Negative (Negative); Cocaine Screen,Urine Negative (Negative); METHADONE URINE SCREEN Negative (Negative); OPIATES URINE SCREEN Negative (Negative)
[2023-05-09 12:51] LABS: Tricyclic Antidepressants Negative (Negative)
[2023-05-09 12:58] LABS: Abs Immature Grans 0.01 10^3/uL (0.0-0.06); Absolute Basophil Count 0.05 10^3/uL (0.0-0.2); Absolute Eosinophil Count 0.03 10^3/uL (0.0-0.7); Absolute Lymphocyte Count 1.29 10^3/uL (1.2-3.4); Absolute Monocyte Count 0.58 10^3/uL (0.1-0.8); Absolute Neutrophil Count 3.49 10^3/uL (1.2-6.7); Basophils % 0.9; Eosinophils % 0.6; HCT 45.4 % (40.0-50.0); HGB 15.8 g/dL (13.5-17.5); Immature Grans % 0.2; Lymphocytes % 23.7; MCH 30.6 pg (27.0-33.0); MCHC 34.8 % (32.0-36.0); MCV 88 fL (80-95); MPV 9.2 fL (8.0-11.0); Monocytes % 10.6; Platelet Count 221 10^3/uL (130-400); RBC 5.17 10^6/uL (4.36-5.78); RDW 11.2 % (11.8-14.1); RDW-SD 36.3 fL; WBC 5.45 10^3/uL (4.4-10.8)
[2023-05-09 13:17] LABS: ALT 53 U/L (16-63); AST 30 U/L (15-37); Albumin 4.1 g/dL (3.4-5.0); Alkaline Phosphatase 63 U/L (46-116); Anion Gap 10.2 mmol/L (3-11); BUN 15 mg/dL (7-18); Bilirubin, Total 1.3 mg/dL (0.2-1.0); CO2 29.8 mmol/L (21.0-32.0); CREATININE 0.9 mg/dL (0.70-1.30); Calcium 9.4 mg/dL (8.5-10.1); Chloride 100 mmol/L (98-107); Estimated GFR 115.65 (mL/min/1.73m2); Glucose 148 mg/dL (74-106); Potassium 3.9 mmol/L (3.5-5.1); Sodium 140 mmol/L (136-145); Total Protein 7.9 g/dL (6.4-8.2)
[2023-05-09 13:23] LABS: ETHANOL BLOOD < 3.0 mg/dL (<10)
[2023-05-09 13:28] LABS: Acetaminophen < 2 ug/mL (10-30); Salicylate < 2.8 mg/dL (<2.8)
--- NOTE | 2023-05-10 09:48 | PDOC.MHCN_ITS ---
Date of service: 05/09/23 Time of Service: 09:48 PHQ-9 Over the last 2 weeks, how often have you been bothered by any of the following problems? 1. Little interest or pleasure in doing things: several days 2. Feeling down, depressed, or hopeless: several days 3. Trouble falling or staying asleep, or sleeping too much: not at all 4. Feeling tired or having little energy: several days 5. Poor appetite or overeating: not at all 6. Feeling bad about yourself - or that you are a failure or have let yourself and your family down: not at all 7. Trouble concentrating on things, such as reading the newspaper or watching television: several days 8. Moving or speaking so slowly that other people could have noticed? - Or the opposite - being so fidgety or restless that you have been moving around a lot more than usual: not at all 9. Thoughts that you would be better off or of hurting yourself in some way: not at all Total score: 4 If you checked off any problems, how difficult have these problems made it for you to do your work, take care of things at home, or get along with other people?: somewhat difficult Source: Developed by Drs. Carroll Ellis, Wanda Baker, Bridger Bradshaw and colleagues, with an educational yung from [employer]. Suicide Severity Rate CSSRS Have you wished you were or wished you could go to sleep and not wake up?: No Have you actually had any thoughts of killing yourself?: No CSSRS4 Was this within the past three months?: No Screening Score Total Score: 0 Screening: Negative Mental Health Emergency Note Release [facility] release signed:: Yes Reason for Visit The client has had previous interactions with but never opened to [facility]. 1 , was the last date he was seen by ES during a crisis assessment completed by DUNCAN Crooks. The client reported that he was hospitalized 2 years ago at the [facility] for similar behaviors voluntarily. He reported that he has been being followed by the [facility] in [place] for therapy and medical and [facility] he has his psychiatrist. Per his girlfriend he has not been taking any medications. The client presented to the ED today via [facility] after being picked up on a MH Warrant that was written on 05.08.23 by [facility]. [facility] is waiting with the client in zone B when this clinician arrived. In the last 2 weeks has the pt presented for ES prior to today?: Unknown Client Information Client is: New Non Suicidal Self Injury Current: No History: No Safety Risk/Harm to Self or Others Current Ideation to Harm Self or Others: No Risk: Does risk to harm exist?: yes. Access to means: Yes. Types of Means: Firearms. Details: Client and girlfriend agree to allow the girlfriend to change the codes on the gun safe and him not to have access to them. He is also at a higher risk when he is drinking. . Counseling provided: Yes Risk: Moderate Risk Duty to warn indicated: No Asssessment/Mental Status Appearance: Well groomed Attitude: Cooperative Behavior: Unremarkable Speech: Normal Affect: Normal Mood: Stressed Thought process: Goal directed Hallucinations: No Delusions: No Attention: Unremarkable Perception: Not impaired Orientation: Fully orientated Memory: Intact Insight: Good Judgement: Fair Neurovegetative Symptoms Sleep: No change Appetitie: No change Interests: No change Energy: No change Libido: Not applicable Substance Use: ETOH dependence Do you use nicotine?: Yes Have you used substances in the last 7 days?: yes, The client reported drinking 10 beverages and shots combined over the weekend. Additional Issues: Assaultive/Threatening Behavior: No Medical Concerns: No Client engaged in active self harm w/weapon: No Threatening to run away: No Child reported abuse/neglect: No Voluntarily presenting for services: No Domestic violence is a concern: No Extreme Psychosis or extreme behavior is present: No Impression The client is a 32 year old, male who is self employed, and lives with his girlfriend in [facility]. 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 He uses He/Him Pronouns and identifies no latter-day affiliation. He is self employed and has struggled with fiances as he does little work in the winter months. The client's underrepresented categories were respected during this assessment. He did partake in all screening tools to include the CSSRS however, follow up supports/treatment could not be done as this clinician is not yet CAM's trained. It is important that this clinician believes the client under-reported his answers to said screening tools based on his answers and reports from his family and girlfriend. He denied previous attempts during out assessment. [facility] while experiencing as reported by him, similar symptoms. The client presented today via [facility] as there was a MH Warrant written by DUNCAN Campos on 05.08.23 based on significant concerns reported by his girlfriend to include, statements of SI and HI as well as firing off weapons in his yard. The client acknowledged memories of firing his weapons and denied memories of statements made. He acknowledged that he had too much to drink this weekend following watching a TV show that triggered his PTSD. He presented with a mostly flat affect however, also appeared anxious at times. He was agreeable to opening paperwork. He was agreeable to screening tools and a safety plan as it was this clinician's professional opinion that he did not at the time of the assessment to meet involuntary treatment requirements. Collateral was completed with his girlfriend who he signed a GUIDO for and requirements for an involuntary hold were explained. The client agreed to allowing his girlfriend to attend his next therapy session, check in calls until Tuesday, and the girlfriend changing the combination on his gun safe until he is cleared by his therapist. The client will call his therapist if he does not have an appointment this week and make one if possible. This clinician will outreach to the girlfriend later this evening to ensure she has changed the combination of the gun safe to ensure safety as she has agreed to do so. Resources Reosurces reviewed and given:: 988 Plan/Disposition Recommended Disposition: PCP/Office visit. Plan: The client agreed to allowing his girlfriend to attend his next therapy session, check in calls until Tuesday, and the girlfriend changing the combination on his gun safe until he is cleared by his therapist. The client will call his therapist if he does not have an appointment this week and make one if possible. This clinician will outreach to the girlfriend later this evening to ensure she has changed the combination of the gun safe to ensure safety as she has agreed to do so. He was made aware of 988 and how that is a resource for him as well as [facility]. Person reported agreement to plan: Yes Reports/communication Outcome discussed with: ED/Personnel
== END 2023-05-09 15:38 | disposition home or self-care (01) ==
PROVIDERS: Emergency Provider Student in an Organized Health Care Education/Training Program
DX: F10.20 Alcohol dependence, uncomplicated (principal); R73.9 Hyperglycemia, unspecified; R45.851 Suicidal ideations; R07.9 Chest pain, unspecified; F32.A Depression, unspecified; F43.10 Post-traumatic stress disorder, unspecified; Z79.4 Long term (current) use of insulin
CPT/HCPCS: 00123; 80053; 80307; 96127; 99285; 80320; 80329; 81003; 85025; 99283

== ENCOUNTER 2023-12-12 03:29 | Outpatient (CLI) | payer OTHER, SELFPAY ==
--- NOTE | 2023-12-12 | DI.RAD_ITS ---
Exam(s) XR CERVICAL SPINE COMP 4-5V EXAM: XR CERVICAL SPINE COMP 4-5V CLINICAL HISTORY: Cervicalgia, M54.2; [id number]. TECHNIQUE: 2D digital imaging was performed. Five views were performed. COMPARISON: No exams were available for comparison FINDINGS: BONES: No fracture or destructive lesion. Vertebral bodies are unremarkable. No evidence of neural foraminal narrowing. DISKS: Mild narrowing of the C3-4 and C4-5 disc spaces. Small endplate osteophytes from C 3 4 throug h C5-6. ALIGNMENT: Cervical spinal alignment is within normal limits. The odontoid and atlantoaxial articulat ions are normal. SOFT TISSUE: Normal. The lung apices are clear. IMPRESSION: Mild degenerative changes from C3-4 through C5-6. DATA REPOSITORY: RADIATION DOSE DELIVERED:
== END 2023-12-12 03:49 ==
LOC: DI 03:29
PROVIDERS: Visit Provider Internal Medicine
DX: M50.122 Cervical disc disorder at C5-C6 level with radiculopathy (principal)
CPT/HCPCS: 72050

== ENCOUNTER 2024-06-23 13:10 | Emergency (ER) | payer OTHER, SELFPAY ==
[2024-06-23 13:13] VITALS: BP 146/93; PULSE 76; RESP 16; TEMP 36.6; O2SAT 98
--- NOTE | 2024-06-23 13:15 | DI.RAD_ITS ---
Exam(s) XR HAND LT COMPLETE EXAM: XR HAND LT COMPLETE CLINICAL HISTORY: hand pain. TECHNIQUE: 2D digital imaging was performed. COMPARISON: No exams were available for comparison FINDINGS: 3 views There is prominent soft tissue swelling over the hand. This appears to be most prominent over the do rsal aspect of the hand and in the thenar-hypo thenar eminence between the thumb and index finger whe re there also appears to be a possible laceration. There is no gas in soft tissues and no radiopaque foreign body. No obvious cortical bone loss although the density of the 2nd metatarsal diaphysis ap pears slightly denser than the others. This may be related to the overlying soft tissue swelling. N o evidence of acute fracture or subluxation. No osseous lesions nor erosions. IMPRESSION: There is no mention of trauma in the requisition. No obvious fractures Significant soft tissue findings as above which are possibly infectious due to what appears to be a l aceration in the soft tissues between the thumb and index finger. There is no radiopaque foreign bod y nor gas in the soft tissues. No fractures. Increased bone density in the 2nd-index metacarpal. C annot exclude osteomyelitis Recommend follow-up MRI scan DATA REPOSITORY: RADIATION DOSE DELIVERED:
[2024-06-23] MEDS: Acetaminophen 500 MG TAB 1000 MG PO (13:23)
--- NOTE | 2024-06-23 13:42 | ED.GENADUL_ITS ---
Discharge Plan Disposition Patient Disposition: Home Condition: Stable Discharge Details Clinical Impression: Contusion of hand, left Primary Care Provider: Unknown,Unknown ED Provider: Cynthia Hayes Home Meds and New Rx's Prescriptions: No Action Nicotrol 10 mg Cartridge 0 cartridge inhalation Q2H PRN PRNQty: 0 0RF lorazepam 0.5 mg Tablet 0.5 mg PO TID PRN PRNQty: 0 0RF One Daily Multi-Vit w-Mineral 4.5 mg iron Tablet 1 tab PO DAILY Qty: 0 0RF insulin glargine [Basaglar KwikPen U-100 Insulin] 100 unit/mL (3 mL) insulin pen 17 unit subcut QDAY insulin aspart U-100 100 unit/mL cartridge 1 sliding scale dose subcut TID PRN Rx Instructions: TAKE BASED ON CARBOHYDRATE INTAKE W/ MEALS Discharge Instructions Instructions: Minor Contusion ED Additional Instructions: X-ray does not reveal a fracture. Please monitor symptoms if you have worsening redness or swelling, please return for reevaluation. Otherwise continue Motrin, Tylenol and ice pack to help with swelling and pain. HPI General Date/Time Provider Initiated Documentation: 06/23/24 13:20 . Limitations to Documentation: no limitations . Information obtained by: patient . HPI Narrative: 43-year-old gentleman with past medical history of diabetes presents for evaluation of left hand pain. He reports that last night he punched the wall and had immediate onset of pain. He says his pain is associated with swelling. Denies any numbness or tingling. He has not tried any medication for relief. Related Data Home Medications ?Medication ?Instructions ?Recorded ?Confirmed lorazepam 0.5 mg tablet 0.5 mg PO TID PRN PRN #0 tabs 01/08/22 06/23/24 multivitamin with minerals-ferrous 1 tab PO DAILY #0 tabs 01/08/22 06/23/24 sulfate 4.5 mg iron tablet (One Daily Multivitamins with Minerals) nicotine 10 mg inhalation 0 cartridge inhalation Q2H PRN PRN 01/08/22 06/23/24 cartridge (Nicotrol) #0 ea insulin aspart U-100 100 unit/mL 1 sliding scale dose subcut TID PRN 05/09/23 06/23/24 subcutaneous cartridge insulin glargine 100 unit/mL (3 17 unit subcut QDAY 05/09/23 06/23/24 mL) subcutaneous pen (Basaglar KwikPen U-100 Insulin) Previous Rx's ?Medication ?Instructions ?Recorded lorazepam 0.5 mg tablet 0.5 mg PO TID PRN PRN #0 tabs 01/08/22 multivitamin with minerals-ferrous 1 tab PO DAILY #0 tabs 01/08/22 sulfate 4.5 mg iron tablet (One Daily Multivitamins with Minerals) nicotine 10 mg inhalation 0 cartridge inhalation Q2H PRN PRN 01/08/22 cartridge (Nicotrol) #0 ea Allergies Allergy/AdvReac Type Severity Reaction Status Date / Time No Known Allergies Allergy Verified 06/23/24 13:13 General Stated Complaint: Orthopedic NASIM: 4 Exam Narrative Exam Narrative: Review of Systems: All systems reviewed & are unremarkable except as noted in HPI and below Well-developed, no acute distress NCAT RRR Unlabored respiratory effort left hand with swelling to the dorsal hand, there is a small no erythema or streaking, tender to palpation, able to make a fist without scissoring, small abrasion over fourth and fifth MCP, not open wounds Good cap refill 2+ pulse, no wrist tenderness Course Vital Signs Vital signs: Vital Signs Temperature 36.6 C 06/23/24 13:13 Pulse 76 06/23/24 13:13 Respiratory Rate 16 06/23/24 13:13 Blood Pressure 146/93 H 06/23/24 13:13 Pulse Oximetry 98 06/23/24 13:13 Temperature 36.6 C 06/23/24 13:13 Temperature Source Oral 06/23/24 13:13 Pulse 76 06/23/24 13:13 Respiratory Rate 16 06/23/24 13:13 Blood Pressure 146/93 H 06/23/24 13:13 Blood Pressure Position Sitting 06/23/24 13:13 Pulse Oximetry 98 06/23/24 13:13 Oxygen Delivery Method Room Air 06/23/24 13:13 Oxygen Flow Rate 0 06/23/24 13:13 Pain Level 8 06/23/24 13:27 Medical Decision Making Emergent evaluation of left hand pain. Patient reports acute trauma from hitting the wall. He is noted to have 2 small abrasions, and the patient absolutely denies fight bite. The patient insists that he did not hit a person, but that he only hit the wall. I did tell the patient that if these do happen t o be wounds from a human mouth, it could lead to more severe consequences, but he again completely denies this. X-ray was obtained and independently interpreted, no noted. The patient was advised supportive care, ice pack, Motrin and Tylenol as needed. Quality:SDOH Health Related Social Needs: No Data to Display PFSH All Active Problems (Updated 06/23/24 @ 13:39 by Cynthia Hayes MD) Contusion of hand, left (Acute) Depression (Chronic) Suicidal thoughts (Acute) Chest pain (Acute) Medical History Depression Anxiety Diabetes Surgical History History of hernia repair Family History Father Heart disease Social History Smoking/Tobacco Use Status: Current-Occasional Tobacco Type: smokeless tobacco Smoking risk assessment performed?: Yes Alcohol Intake: current Alcohol Intake frequency: 3 or more drinks per day Alcohol type: beer Drug use: Occasionally Substance use type: does not use and former substance user Details: denies current substances aside from ETOH. Per pt, usually about 15 drinks a day beer or hard liquor Do you feel safe at home: Yes Do you feel safe in your relationship?: Yes PAWSS Have you Been Recently Intoxicated or Drunk Within the Last 30 days?: Yes Have you Ever Experienced Previous Episodes of Alcohol Withdrawal?: No Have you ever Experienced Withdrawal Seizures?: No Have you ever Experienced Delirium Tremens(DT)s?: Yes Have you ever undergone Alcohol Rehabilitation Treatment (i.e, inpt ot outpatient treatment programs)?: Yes Have you ever Experienced Blackouts?: Yes Have you ever Combined Alcohol with other Downers within the last 90 days?: No Have you ever Combined Alcohol with any other Substance of Abuse during the last 90 days?: No Positive Blood Alcohol level on Presentation? [PCS.BAL]: No Evidence of Increased Autonomic Activity (i.e. HR>120, tremor, sweating, agitation, nausea)?: No Result: 4
== END 2024-06-23 13:49 | disposition home or self-care (01) ==
LOC: ER 13:49
PROVIDERS: Emergency Provider Emergency Medicine
DX: S60.222A Contusion of left hand, initial encounter (principal); W22.01XA Walked into wall, initial encounter; Y93.89 Activity, other specified
CPT/HCPCS: 99283; 73130